=== PATIENT | female | born 1995 | race Caucasian/White ===

== ENCOUNTER 2016-08-24 08:49 | Emergency (ER) | payer OTHER ==
--- NOTE | 2016-08-24 12:49 | ED CLINICAL REPORT ---
Clinical Report - Physicians/Mid Levels [facility] [address] [place] [address] 08/24/2016 8:53 Patient: CULLEN ACHARYA Time Seen: 09:05; initial patient contact. Arrived- By private vehicle. Historian- patient. HISTORY OF PRESENT ILLNESS Chief Complaint: VAGINAL BLEEDING. This started today and still present. It was abrupt in onset and has been intermittent. The symptoms are described as mild. Modifying factors. Not worsened by anything. Not relieved by anything. The patient has had abnormal bleeding. No abdominal pain, pelvic pain, vaginal pain, low back pain or flank pain. No missed period(s), irregular periods, vaginal discharge, vaginal itching or genital lesions. No pain with urination, urinary frequency, urgency of urination or hematuria. Currently . Not receiving care. Similar symptoms previously: None. Recent medical care: Not recently seen/assessed. REVIEW OF SYSTEMS The patient has had nausea. No vomiting, diarrhea, fever or chills. All systems otherwise negative, except as recorded above. PAST HISTORY ( Cervical erosion. Abdominal Pain. Headache. Vaginitis. Vaginal Discharge. UTI - Urinary Tract Infection. OB History. Hyperemesis Gravidarum. Nephrolithiasis. Heart Murmur. . SURGERIES: Adenoidectomy. Cervix cauterized 02/26. .). SOCIAL HISTORY Never smoker. Occasional alcohol use. No drug use. ADDITIONAL NOTES The nursing notes have been reviewed with agreement regarding the chief complaint, PMH and patient medications and allergies. PHYSICAL EXAM Vital Signs: 08/24/2016 09:03 BP: 127/82. HR: 111. RR: 18. O2 saturation: 100%. Temp: 98.2 F. Pain level now: 0/10. Have been reviewed. Blood pressure normal. Tachycardic. Respiratory rate normal. Temperature normal. Oxygen saturation normal. Appearance: Alert. Oriented X3. No acute distress. HEENT: Normal external inspection. CVS: Heart sounds normal. Rate normal. Rhythm normal. Respiratory: No respiratory distress. Breath sounds normal. Abdomen: Soft and nontender. Bowel sounds normal. No organomegaly. No mass. : Speculum and bimanual exam performed. External inspection normal. Slight vaginal bleeding, consisting of dark blood, via the cervical os. No vaginal discharge. Cervical os closed. No tissue present. No cervicitis. Bimanual exam normal. Skin: Skin warm and dry. Normal skin color. No rash. Extremities: No lower extremity edema. Neuro: Oriented X 3. LABS, X-RAYS, AND EKG Pelvic Sonogram: Normal study. Uterus normal. A single gestation, viable intrauterine (6 week size) is present. Cardiac activity noted. Adnexa normal. No free fluid. Study type: bedside transvaginal and obstetrical evaluation. The study was interpreted by the radiologist and discussed with the radiologist. Interpretation time: 11:30. Laboratory Tests: UA-Culture if indicated: (FRANCO: 08/24/2016 09:30) ( [facility] [place] 08/24/2016 10:34) Final results Test Result Flag Units (Reference) URINE COLOR YELLOW URINE APPEARANCE CLEAR URINE GLUCOSE NEGATIVE (NEGATIVE) URINE BILIRUBIN NEGATIVE (NEGATIVE) URINE KETONE NEGATIVE (NEGATIVE) URINE SPECIFIC GRAVITY 1.020 (1.010-1.030) URINE PH 6.5 (5.0-8.0) URINE PROTEIN NEGATIVE (NEGATIVE) URINE UROBILINOGEN 0.2 EU/dL (0.2-1.0) URINE NITRITE NEGATIVE (NEGATIVE) URINE BLOOD 2+ (NEGATIVE) URINE LEUK ESTERASE NEGATIVE (NEGATIVE) URINE RBC 0-1 rbc/hpf (0-1) URINE WBC 0-1 wbc/hpf (0-1) URINE EPITHELIAL CELLS 1-3 EPI/hpf (0-5) URINE BACTERIA FEW (1+) (NONE SEEN) URINE COMMENT CULT NOT INDICATED URINE CULTURES ARE SET-UP BASED ON THE FOLLOWING CRITERIA:POSITIVE NITRITEPOSITIVE LEUKOCYTE ESTERASEGREATER THAN 10 WHITE BLOOD CELLSMODERATE (2+) OR GREATER BACTERIA Urine: (FRANCO: 08/24/2016 09:30) ( [facility] [place] 08/24/2016 10:16) Final results Test Result Flag Units (Reference) URINE POSITIVE CBC w Diff: (FRANCO: 08/24/2016 10:56) ( MsgRcvd 08/24/2016 11:09) IP Test Result Flag Units (Reference) WHITE BLOOD COUNT 10.0 K/uL (4.5-11.5) RED BLOOD COUNT 4.90 M/uL (4.00-5.20) HEMOGLOBIN 14.5 gm/dL (12.0-16.0) HEMATOCRIT 44.3 % (36.0-46.0) MEAN CELL VOLUME 91 fL (80-100) MEAN CORPUSCULAR HGB 30 pg (26-34) MEAN CORPUSCULAR HGB CONC 33 g/dL (31-37) RED CELL DISTRIBUTION WIDTH 14.6 % (11.6-14.8) NEUTROPHIL % 71.2 % (50-75) LYMPH % 23.6 L % (25-40) MONO % 4.6 % (3-14) EOSINOPHIL % 0.4 % (0-4) BASOPHIL % 0.2 % (0-2) Wet Prep: (FRANCO: 08/24/2016 10:00) ( MsgRcvd 08/24/2016 10:28) Final results SPECIMEN DESCRIPTION: ... Test Result Flag Units (Reference) WET MOUNT CLUE CELLS:: NONE EPITHELIAL CELLS: 1+ -- SOURCE?: CERVIX WHITE BLOOD CELLS: 2+ TRICHOMONAS:: NONE -- YEAST:: NONE . PROGRESS AND PROCEDURES Disposition: Discharged home in good condition. Condition: good. CLINICAL IMPRESSION First trimester intrauterine ; positive test in emergency department. Mild metrorrhagia. Ultrasound demonstrated an intrauterine . No dysfunctional uterine bleeding, pre-menopausal, menopausal or post-menopausal vaginal bleeding or vaginal bleeding with ovulation. No postcoital vaginal bleeding. INSTRUCTIONS Your Current Medications: CONTINUE TAKING THE FOLLOWING MEDICATIONS: Plexus drink for sleep*. Vitamins Oral. Follow-up: Follow up with your doctor in about two days. Call for an appointment. Screening today revealed the patient's blood pressure to be in the pre-hypertensive range. The patient should follow up with a primary care provider for blood pressure management. (Electronically signed by Laurent Michaels Dr. 08/24/2016 22:07)
--- NOTE | 2016-08-24 12:49 | ED NURSING NOTES ---
Clinical Report - Nurses [facility] [address] [place] [address] 08/24/2016 8:53 Patient: CULLEN ACHARYA TRIAGE Triage time 09:03. Acuity: LEVEL 3. Chief Complaint: VAGINAL BLEEDING. Alert. --09:10 Di Ramirez R.N. 09:03 08/24/16. BP: 127/82. HR: 111. RR: 18. O2 saturation: 100%. Temp: 98.2 F. Pain level now: 0. --09:10 Di Ramirez R.N. Weight: 75.7 kg stated. Height/Length: 63 inches Per Patient. BMI: 29.6. --09:08 Di Ramirez R.N. Medications Vitamins Oral. --09:07 Di Ramirez R.N. Plexus drink for sleep. --09:07 Di Ramirez R.N. Allergies Latex. --09:07 Di Ramirez R.N. History Arrived by private vehicle. Historian: patient. Unaccompanied. Primary physician (Nilton). This started just prior to arrival and today. PAST MEDICAL HX: Last normal menstrual period- Jul 08. Currently : Pt plans on seeing a maintenance data analyst. In 1st trimester. confirmed with home test. Has had no care. OB history: G 5; P 3; Ab 1. SOCIAL HX: Never smoker. Alcohol use. (rarely). No drug use. The patient was not exposed to MRSA. SELF HARM ASSESSMENT: A self harm assessment was performed. The patient answered "no" to the question "Do you have thoughts of harming or killing yourself?". FALL RISK ASSESSMENT: Fall risk assessment completed. No fall risk identified. NUTRITIONAL RISK ASSESSMENT: The nutritional risk assessment revealed no deficiencies. FUNCTIONAL ASSESSMENT: Functional assessment: no impairments noted. LEARNING NEEDS ASSESSMENT: The learning needs assessment revealed no barriers. SKIN INTEGRITY ASSESSMENT: Skin integrity risk assessment completed. No skin integrity risk identified. --09:10 Di Ramirez R.N. PROBLEMS: Cervical erosion. Abdominal Pain. Headache. Vaginitis. Vaginal Discharge. UTI - Urinary Tract Infection. OB History. Hyperemesis Gravidarum. Nephrolithiasis. Heart Murmur. . --09:04 Di Ramirez R.N. ADDITIONAL SURGERIES: Adenoidectomy. Cervix cauterized 02/26. . --09:05 Di Ramirez R.N. Interventions ID band on patient. To room. --09:10 Di Ramirez R.N. PHYSICAL ASSESSMENT 09:08/24/16. Patient gowned. GENERAL / NEURO / PSYCH: Alert. Oriented X 4. Appears anxious. --09:10 Di Ramirez R.N. NURSING PROGRESS NOTES 09:08/24/16. Patient identifiers checked. Call light placed in reach. Bed placed in lowest position. Brakes of bed on. Patient ready for evaluation- chart flagged. --09:10 Di Ramirez R.N. 09:32 08/24/16. Patient ID band checked for patient name and birthdate: patient confirmed. Clean catch urine collected with return of yellow-colored clear urine; sample sent to lab. Specimen labeled in the presence of the patient. --09:32 Di Ramirez R.N. 10:04 08/24/16. PELVIC EXAM: Pelvic exam performed by ED physician. Assisted by one nurse. Preparation: pelvic tray and culture medium; patient placed in lithotomy position. Procedure: speculum and bimanual exam. Specimens collected and sent to lab: GC, chlamydia and wet prep. Status post-procedure: no complications were noted. Total time of assist / procedure: (10 minutes). --10:04 Di Ramirez R.N. Patient ID band checked for patient name and birthdate: patient confirmed. Blood samples drawn from the left antecubital space with 23g butterfly by tech per protocol ; labeled in presence of the patient and sent to lab: rainbow set and red, green, purple and blue top. --10:59 Kori Gilbert, CARO Tech1 ( chaperoned while US tech. performing US.). --11:13 Kori Gilbert, ER Tech1. DISPOSITION / DISCHARGE Departure time: 1322. Condition at departure: improved. No learning barriers present. Discharge instructions provided and reviewed with the patient. Reviewed referral to family practice for followup. Verbalized understanding. Written instructions provided. The patient was discharged home. She left the Emergency Department ambulatory and via private vehicle. --13:26 Di Ramirez R.N. 13:22 08/24/16. BP: 119/87. HR: 108. RR: 18. O2 saturation: 100%. Pain level now: 0/10. --13:26 Di Ramirez R.N. Locked/Released at 08/24/2016 13:26 by Di Ramirez R.N.
--- NOTE | 2016-08-24 12:49 | ED ORDER SUMMARY ---
..... Patient: CULLEN ACHARYA OrderSheet [facility] VisitID: [id number] [place] [address] 21y, F Registration Date/Time: 08/24/2016 ORDER SHEET Weight: 75.7 kg (stated) Allergies: Latex GENERAL ORDERS: Wet Prep (Cervix) (...) Urgent (09:32 08/24/2016 Fabian Newton) (Ack 9:42 LNations ER Tech1) (12:12 NHouse ER Tech1) GC/Chlamydia (Cervix) (...) Urgent (09:33 08/24/2016 Fabian Newton) (Ack 9:42 LNations ER Tech1) (12:12 NHouse ER Tech1) UA-Culture if indicated Urgent (09:08/24/2016 Fabian Newton) (Ack 9:42 LNations ER Tech1) (11:52 NHouse ER Tech1) Urine Urgent (09:08/24/2016 Fabian Newton) (Ack 9:42 LNations ER Tech1) (11:52 NHouse ER Tech1) CBC w Diff Urgent (10:40 08/24/2016 Fabian Newton) (Ack 10:42 NHouse ER Tech1) (10:58 LNations ER Tech1) CMP Urgent (10:40 08/24/2016 Fabian Newton) (Ack 10:42 NHouse ER Tech1) (10:58 LNations ER Tech1) Serum Quantitative Urgent (10:40 08/24/2016 Fabian Newton) (Ack 10:42 NHouse ER Tech1) (10:58 LNations ER Tech1) Type & Rh Urgent (10:40 08/24/2016 Fabian Newton) (Ack 10:42 NHouse ER Tech1) (10:58 LNations ER Tech1) US OB 1st Trimester w Transvag (~ 8 weeks ago) Urgent (10:43 08/24/2016 Fabian Newton) (Ack 10:46 NHouse ER Tech1) (11:52 LNations ER Tech1) MEDICATION ORDERS: IV FLUIDS: ORDER SHEET NOTES: [Electronically signed by Di Ramirez R.N. (08/24/2016)] [Electronically signed by Laurent Michaels Dr. (22:07 08/24/2016)] [Electronically locked/signed by Di Ramirez R.N. (08/24/2016)]
--- NOTE | 2016-08-24 12:49 | ED NURSING NOTES ---
Clinical Report - Nurses [facility] [address] [place] [address] 08/24/2016 8:53 Patient: CULLEN ACHARYA TRIAGE Triage time 09:03. Acuity: LEVEL 3. Chief Complaint: VAGINAL BLEEDING. Alert. --09:10 Di Ramirez R.N. 09:03 08/24/16. BP: 127/82. HR: 111. RR: 18. O2 saturation: 100%. Temp: 98.2 F. Pain level now: 0. --09:10 Di Ramirez R.N. Weight: 75.7 kg stated. Height/Length: 63 inches Per Patient. BMI: 29.6. --09:08 Di Ramirez R.N. Medications Vitamins Oral. --09:07 Di Ramirez R.N. Plexus drink for sleep. --09:07 Di Ramirez R.N. Allergies Latex. --09:07 Di Ramirez R.N. History Arrived by private vehicle. Historian: patient. Unaccompanied. Primary physician (Nilton). This started just prior to arrival and today. PAST MEDICAL HX: Last normal menstrual period- Jul 08. Currently : Pt plans on seeing a salesperson florist supplies. In 1st trimester. confirmed with home test. Has had no care. OB history: G 5; P 3; Ab 1. SOCIAL HX: Never smoker. Alcohol use. (rarely). No drug use. The patient was not exposed to MRSA. SELF HARM ASSESSMENT: A self harm assessment was performed. The patient answered "no" to the question "Do you have thoughts of harming or killing yourself?". FALL RISK ASSESSMENT: Fall risk assessment completed. No fall risk identified. NUTRITIONAL RISK ASSESSMENT: The nutritional risk assessment revealed no deficiencies. FUNCTIONAL ASSESSMENT: Functional assessment: no impairments noted. LEARNING NEEDS ASSESSMENT: The learning needs assessment revealed no barriers. SKIN INTEGRITY ASSESSMENT: Skin integrity risk assessment completed. No skin integrity risk identified. --09:10 Di Ramirez R.N. PROBLEMS: Cervical erosion. Abdominal Pain. Headache. Vaginitis. Vaginal Discharge. UTI - Urinary Tract Infection. OB History. Hyperemesis Gravidarum. Nephrolithiasis. Heart Murmur. . --09:04 Di Ramirez R.N. ADDITIONAL SURGERIES: Adenoidectomy. Cervix cauterized 02/26. . --09:05 Di Ramirez R.N. Interventions ID band on patient. To room. --09:10 Di Ramirez R.N. PHYSICAL ASSESSMENT 09:08/24/16. Patient gowned. GENERAL / NEURO / PSYCH: Alert. Oriented X 4. Appears anxious. --09:10 Di Ramirez R.N. NURSING PROGRESS NOTES 09:08/24/16. Patient identifiers checked. Call light placed in reach. Bed placed in lowest position. Brakes of bed on. Patient ready for evaluation- chart flagged. --09:10 Di Ramirez R.N. 09:32 08/24/16. Patient ID band checked for patient name and birthdate: patient confirmed. Clean catch urine collected with return of yellow-colored clear urine; sample sent to lab. Specimen labeled in the presence of the patient. --09:32 Di Ramirez R.N. 10:04 08/24/16. PELVIC EXAM: Pelvic exam performed by ED physician. Assisted by one nurse. Preparation: pelvic tray and culture medium; patient placed in lithotomy position. Procedure: speculum and bimanual exam. Specimens collected and sent to lab: GC, chlamydia and wet prep. Status post-procedure: no complications were noted. Total time of assist / procedure: (10 minutes). --10:04 Di Ramirez R.N. Patient ID band checked for patient name and birthdate: patient confirmed. Blood samples drawn from the left antecubital space with 23g butterfly by tech per protocol ; labeled in presence of the patient and sent to lab: rainbow set and red, green, purple and blue top. --10:59 Kori Gilbert, CARO Tech1 ( chaperoned while US tech. performing US.). --11:13 Kori Gilbert, ER Tech1. DISPOSITION / DISCHARGE Departure time: 1322. Condition at departure: improved. No learning barriers present. Discharge instructions provided and reviewed with the patient. Reviewed referral to family practice for followup. Verbalized understanding. Written instructions provided. The patient was discharged home. She left the Emergency Department ambulatory and via private vehicle. --13:26 Di Ramirez R.N. 13:22 08/24/16. BP: 119/87. HR: 108. RR: 18. O2 saturation: 100%. Pain level now: 0/10. --13:26 Di Ramirez R.N. Locked/Released at 08/24/2016 13:26 by Di Ramirez R.N.
--- NOTE | 2016-08-24 12:49 | ED ORDER SUMMARY ---
..... Patient: CULLEN ACHARYA OrderSheet [facility] VisitID: [id number] [place] [address] 21y, F Registration Date/Time: 08/24/2016 ORDER SHEET Weight: 75.7 kg (stated) Allergies: Latex GENERAL ORDERS: Wet Prep (Cervix) (...) Urgent (09:32 08/24/2016 Fabian Newton) (Ack 9:42 LNations ER Tech1) (12:12 NHouse ER Tech1) GC/Chlamydia (Cervix) (...) Urgent (09:33 08/24/2016 Fabian Newton) (Ack 9:42 LNations ER Tech1) (12:12 NHouse ER Tech1) UA-Culture if indicated Urgent (09:08/24/2016 Fabian Newton) (Ack 9:42 LNations ER Tech1) (11:52 NHouse ER Tech1) Urine Urgent (09:08/24/2016 Fabian Newton) (Ack 9:42 LNations ER Tech1) (11:52 NHouse ER Tech1) CBC w Diff Urgent (10:40 08/24/2016 Fabian Newton) (Ack 10:42 NHouse ER Tech1) (10:58 LNations ER Tech1) CMP Urgent (10:40 08/24/2016 Fabian Newton) (Ack 10:42 NHouse ER Tech1) (10:58 LNations ER Tech1) Serum Quantitative Urgent (10:40 08/24/2016 Fabian Newton) (Ack 10:42 NHouse ER Tech1) (10:58 LNations ER Tech1) Type & Rh Urgent (10:40 08/24/2016 Fabian Newton) (Ack 10:42 NHouse ER Tech1) (10:58 LNations ER Tech1) US OB 1st Trimester w Transvag (~ 8 weeks ago) Urgent (10:43 08/24/2016 Fabian Newton) (Ack 10:46 NHouse ER Tech1) (11:52 LNations ER Tech1) MEDICATION ORDERS: IV FLUIDS: ORDER SHEET NOTES: [Electronically signed by Di Ramirez R.N. (08/24/2016)] [Electronically signed by Laurent Michaels Dr. (22:07 08/24/2016)] [Electronically locked/signed by Di Ramirez R.N. (08/24/2016)]
--- NOTE | 2016-08-24 22:07 | ED MED RECONCILIATION SUMMARY ---
Patient: CULLEN ACHARYA Medication Reconciliation Report [facility] VisitID: [id number] [address] [place] [place] [address] 21y, F Registration Date/Time: 08/24/2016 Weight: 75.7 kg Height/Length: 63 in. BMI: 29.6 ALLERGIES: Latex The patient's Home Medications are listed below: CONTINUE TAKING THE FOLLOWING MEDICATIONS: Plexus drink for sleep Vitamins Oral The source(s) of the original Home Medication information: Not obtained. The following Medications were given to the patient in the Emergency Department: None. The following Medications were prescribed to the patient: None.
--- NOTE | 2016-08-24 22:07 | ED MED RECONCILIATION SUMMARY ---
Patient: CULLEN ACHARAY Medication Reconciliation Report [facility] VisitID: [id number] [address] [place] [address] 21y, F Registration Date/Time: 08/24/2016 Weight: 75.7 kg Height/Length: 63 in. BMI: 29.6 ALLERGIES: Latex The patient's Home Medications are listed below: CONTINUE TAKING THE FOLLOWING MEDICATIONS: Plexus drink for sleep Vitamins Oral The source(s) of the original Home Medication information: Not obtained. The following Medications were given to the patient in the Emergency Department: None. The following Medications were prescribed to the patient: None.
--- NOTE | 2016-08-24 22:07 | ED MAR SUMMARY ---
..... Medication Administration Record [facility] [address] [place], [place] [id number] Patient: CULLEN ACHARYA Markus Visit ID: [id number] 21y, F Weight: 75.7 kg Height/Length: 63 in BMI: 29.6 ALLERGIES: Latex
--- NOTE | 2016-08-24 22:07 | ED MAR SUMMARY ---
..... Medication Administration Record [facility] [address] [place] [id number] Patient: CULLEN ACHARYA Markus Visit ID: [id number] 21y, F Weight: 75.7 kg Height/Length: 63 in BMI: 29.6 ALLERGIES: Latex
--- NOTE | 2016-08-24 22:07 | ED DISCHARGE INSTRUCTIONS ---
Patient: CULLEN ACHARYA General Instructions [facility] VisitID: [id number] [place] [address] 21y, F Registration Date/Time: 08/24/2016 First trimester intrauterine ; positive test in emergency department. Mild metrorrhagia. Ultrasound demonstrated an intrauterine . No dysfunctional uterine bleeding, pre-menopausal, menopausal or post-menopausal vaginal bleeding or vaginal bleeding with ovulation. No postcoital vaginal bleeding. INSTRUCTIONS Your Current Medications: CONTINUE TAKING THE FOLLOWING MEDICATIONS: Plexus drink for sleep*. Vitamins Oral. Follow-up: Follow up with your doctor in about two days. Call for an appointment. Screening today revealed the patient's blood pressure to be in the pre-hypertensive range. The patient should follow up with a primary care provider for blood pressure management. ADDITIONAL INFORMATION Irregular Vaginal Bleeding This is a condition in which bleeding occurs at unexpected times of the month. The bleeding may be heavier or table top tile setter than usual. Heavy bleeding may lead to anemia. If severe enough, anemia may cause you to look pale and feel weak or fatigued. You might have shortness of breath even with little exertion. The female hormones produced in your body every month may be out of balance. This imbalance leads to bleeding. Causes could include an ovarian cyst, emotional stress, pelvic infection. Failure to ovulate during your last cycle may also cause this problem. Home Care: If bleeding is heavy, rest and avoid heavy exertion. You may use acetaminophen (Tylenol) or ibuprofen (Motrin, Advil) to control pain, unless another pain medicine was prescribed. [NOTE: If you have chronic liver or kidney disease or ever had a stomach ulcer or GI bleeding, talk with your doctor before using these medicines.] Iron supplements may be prescribed for anemia. It takes about 4-6 weeks for the iron to correct the anemia. Take the medicine as directed. See your doctor for a repeat blood test after you finish the iron treatment. If hormones were prescribed to control your bleeding, take them exactly as directed. If you were prescribed a medicine called Provera (medroxyprogesterone), the bleeding should stop while you are taking it. Another period will start a few days after you finish the medicine. Follow Up with your doctor, or as advised, within the next 1-2 days if heavy bleeding continues. Otherwise, follow up within the next 1-2 weeks. Get Prompt Medical Attention if any of the following occur: Bleeding becomes heavy (soaking one pad an hour for three hours) Fever of 100.4F (38C) or higher, or as directed by your healthcare provider Increase in abdominal pain Weakness, dizziness or fainting Your exam today shows that you are . During , it is normal to develop tender swollen breasts, frequent urination and mild vaginal discharge. During the first three months, nausea is common. Guidelines For A Healthy : To ensure that your baby is born healthy there are certain things that you can do: When you feel tired, you should REST. This is especially true in the later months of . Your body needs more FLUIDS than you may be used to: You should drink 8-10 glasses of juice, milk or water. Eat well-balanced MEALS at regular intervals to supply your body with enough protein. You can expect a total weight gain of about 30 pounds during the . Do not try to diet or lose weight while you are . Because of the extra nutritional needs during , take one VITAMIN daily. Do not take any other MEDICINE during your (prescribed or [id number]-gusxean) unless your doctor specifically recommends this. Many drugs can have harmful effects on the growing baby. If NAUSEA or VOMITING become a problem, avoid greasy and fried foods. Eat several smaller meals throughout the day rather than three large meals. If you SMOKE, you must stop. The nicotine you breathe in goes right to the baby. Stay away from ALCOHOL, even in moderate amounts. Daily drinking will harm your baby and can cause permanent brain damage. RECREATIONAL DRUGS are harmful, especially cocaine, crack, and heroin. Marijuana should also be avoided. If you were using recreational drugs or prescribed medicine when you found out that you were , talk to your doctor about possible effects on the fetus. Follow Up: Call to arrange for care. This can be provided by your family doctor, an substation electrician ( specialist) or a primary care clinic. Get Prompt Medical Attention if any of the following occur: Vaginal bleeding Moderate or severe abdominal or back pain Excessive vomiting, unable to keep any fluids down for six hours Burning with urination Headache, dizziness or rapid weight gain You have been given the following additional information: Dysfunctional Uterine Bleeding , New Dx (Electronically signed by Laurent Michaels Dr. 08/24/2016 22:07)
--- NOTE | 2016-08-24 22:07 | ED DISCHARGE INSTRUCTIONS ---
Patient: CULLEN ACHARYA General Instructions [facility] VisitID: [id number] [place] [address] 21y, F Registration Date/Time: 08/24/2016 First trimester intrauterine ; positive test in emergency department. Mild metrorrhagia. Ultrasound demonstrated an intrauterine . No dysfunctional uterine bleeding, pre-menopausal, menopausal or post-menopausal vaginal bleeding or vaginal bleeding with ovulation. No postcoital vaginal bleeding. INSTRUCTIONS Your Current Medications: CONTINUE TAKING THE FOLLOWING MEDICATIONS: Plexus drink for sleep*. Vitamins Oral. Follow-up: Follow up with your doctor in about two days. Call for an appointment. Screening today revealed the patient's blood pressure to be in the pre-hypertensive range. The patient should follow up with a primary care provider for blood pressure management. ADDITIONAL INFORMATION Irregular Vaginal Bleeding This is a condition in which bleeding occurs at unexpected times of the month. The bleeding may be heavier or hydrology teacher than usual. Heavy bleeding may lead to anemia. If severe enough, anemia may cause you to look pale and feel weak or fatigued. You might have shortness of breath even with little exertion. The female hormones produced in your body every month may be out of balance. This imbalance leads to bleeding. Causes could include an ovarian cyst, emotional stress, pelvic infection. Failure to ovulate during your last cycle may also cause this problem. Home Care: If bleeding is heavy, rest and avoid heavy exertion. You may use acetaminophen (Tylenol) or ibuprofen (Motrin, Advil) to control pain, unless another pain medicine was prescribed. [NOTE: If you have chronic liver or kidney disease or ever had a stomach ulcer or GI bleeding, talk with your doctor before using these medicines.] Iron supplements may be prescribed for anemia. It takes about 4-6 weeks for the iron to correct the anemia. Take the medicine as directed. See your doctor for a repeat blood test after you finish the iron treatment. If hormones were prescribed to control your bleeding, take them exactly as directed. If you were prescribed a medicine called Provera (medroxyprogesterone), the bleeding should stop while you are taking it. Another period will start a few days after you finish the medicine. Follow Up with your doctor, or as advised, within the next 1-2 days if heavy bleeding continues. Otherwise, follow up within the next 1-2 weeks. Get Prompt Medical Attention if any of the following occur: Bleeding becomes heavy (soaking one pad an hour for three hours) Fever of 100.4F (38C) or higher, or as directed by your healthcare provider Increase in abdominal pain Weakness, dizziness or fainting Your exam today shows that you are . During , it is normal to develop tender swollen breasts, frequent urination and mild vaginal discharge. During the first three months, nausea is common. Guidelines For A Healthy : To ensure that your baby is born healthy there are certain things that you can do: When you feel tired, you should REST. This is especially true in the later months of . Your body needs more FLUIDS than you may be used to: You should drink 8-10 glasses of juice, milk or water. Eat well-balanced MEALS at regular intervals to supply your body with enough protein. You can expect a total weight gain of about 30 pounds during the . Do not try to diet or lose weight while you are . Because of the extra nutritional needs during , take one VITAMIN daily. Do not take any other MEDICINE during your (prescribed or [id number]-rpverqd) unless your doctor specifically recommends this. Many drugs can have harmful effects on the growing baby. If NAUSEA or VOMITING become a problem, avoid greasy and fried foods. Eat several smaller meals throughout the day rather than three large meals. If you SMOKE, you must stop. The nicotine you breathe in goes right to the baby. Stay away from ALCOHOL, even in moderate amounts. Daily drinking will harm your baby and can cause permanent brain damage. RECREATIONAL DRUGS are harmful, especially cocaine, crack, and heroin. Marijuana should also be avoided. If you were using recreational drugs or prescribed medicine when you found out that you were , talk to your doctor about possible effects on the fetus. Follow Up: Call to arrange for care. This can be provided by your family doctor, an sfdc developer ( specialist) or a primary care clinic. Get Prompt Medical Attention if any of the following occur: Vaginal bleeding Moderate or severe abdominal or back pain Excessive vomiting, unable to keep any fluids down for six hours Burning with urination Headache, dizziness or rapid weight gain You have been given the following additional information: Dysfunctional Uterine Bleeding , New Dx (Electronically signed by Laurent Michaels Dr. 08/24/2016 22:07)
--- NOTE | 2016-08-25 18:10 | DIAGNOSTIC IMAGING REPORT ---
PROCEDURE: US OB 1ST TRIMESTER W/TRANSVAG INDICATION: ABNORMAL BLEEDING, initial encounter TECHNIQUE: King scale, color, and spectral Doppler transabdominal and endovaginal sonographic images of the first trimester gravid uterus were obtained. COMPARISON: None. FINDINGS: TRANSABDOMINAL SCANS: There is an intrauterine gestational sac. TRANSVAGINAL SCANS: [place]-rump length 5 mm, 6 weeks 2 days. JOAQUINA 04/17/2017. Heart rate 119 bpm. IMPRESSION: 1. Single live intrauterine 6 weeks 2 days 2. JOAQUINA 04/17/2017
== END 2016-08-24 13:23 | disposition home or self-care (01) ==
LOC: ED SRH 08:49
DX: O20.8 Other hemorrhage in early pregnancy (principal); Z3A.01 Less than 8 weeks gestation of pregnancy; Z91.040 Latex allergy status
CPT/HCPCS: 90001; 90004; 90100; 90155; 90195; 90197; 91227; 91228; 93070; 95059

== ENCOUNTER 2016-08-27 18:47 | Emergency (ER) | payer OTHER ==
--- NOTE | 2016-08-27 23:13 | DIAGNOSTIC IMAGING REPORT ---
PROCEDURE: US OB 1ST TRIMESTER W/TRANSVAG INDICATION: ABNORMAL BLEEDING TECHNIQUE: King scale, color, and spectral Doppler transabdominal and endovaginal sonographic images of the first trimester gravid uterus were obtained. COMPARISON: OB ultrasound 08/24/2016 FINDINGS: TRANSABDOMINAL SCANS: Abnormal shaped gestational sac in the lower uterine segment . TRANSVAGINAL SCANS: Abnormal shaped pole with crown-rump length 5.1 mm, 6 weeks 2 days, unchanged. No evidence of cardiac activity. Normal adnexa. IMPRESSION: 1. Intrauterine with no cardiac rhythm or interval growth, most consistent with demise. 2. Results discussed with Dr. Avila
--- NOTE | 2016-08-28 00:25 | ED NURSING NOTES ---
Clinical Report - Nurses [facility] [address] [place] [address] 08/27/2016 18:47 Patient: CULLEN ACHARYA TRIAGE Triage time 19:Aug 27 2016. Acuity: LEVEL 3. Chief Complaint: VAGINAL BLEEDING. 19:00 08/27/16. --19:09 Juliet Gold R.N. 19:00 08/27/16. BP: 125/79. HR: 106. RR: 22. O2 saturation: 97%. Temp: 97.9 F. Pain level now: 0/10. --19:09 Juliet Gold R.N. Weight: 75.7 kg stated. Height/Length: 63 inches Per Patient. BMI: 29.6. --19:00 Juliet Gold R.N. Medications Vitamins Oral. --19:03 Juliet Gold R.N. Medication/allergy information source: the patient. --19:09 Juliet Gold R.N. History Arrived by private vehicle. Historian: patient. Accompanied by family. This started just prior to arrival. ( felt gush of blood tonight, filled a pad. Pt has had 2 prior ultrasounds this (here at [facility]) labs done as well. Last US had normal heart rate and everything was ok). No vomiting, fever or swelling. Treatment DIRECTOR OF BROADCAST: None. PAST MEDICAL HX: Currently : EDC: LNMP:. In 1st trimester. confirmed with serum test and sonogram. Has had care by private doctor. Recent sonogram showed viable intrauterine . OB history: G 5; P 3; Ab 1. Has not received seasonal influenza immunization. SOCIAL HX: Former smoker. No alcohol use or drug use. No infectious disease exposure. ABUSE ASSESSMENT: No report of abuse. SELF HARM ASSESSMENT: A self harm assessment was performed. The patient answered "no" to the question "Have you recently felt down, depressed, or hopeless?", "Have you noticed less interest or pleasure in doing things?", "Do you have thoughts of harming or killing yourself?", "Are you here because you tried to hurt yourself?", "Have you ever tried to hurt yourself before today?", "Have you recently had thoughts about harming or killing others?" and "Do you have any dangerous items in your possession?". FALL RISK ASSESSMENT: Fall risk assessment completed. No fall risk identified. NUTRITIONAL RISK ASSESSMENT: The nutritional risk assessment revealed no deficiencies. FUNCTIONAL ASSESSMENT: Functional assessment: no impairments noted. LEARNING NEEDS ASSESSMENT: The learning needs assessment revealed no barriers. SKIN INTEGRITY ASSESSMENT: Skin integrity risk assessment completed. No skin integrity risk identified. --19:09 Juliet Gold R.N. PROBLEMS: Cervical erosion. Hyperemesis Gravidarum. Nephrolithiasis. --19:03 Juliet Gold R.N. ADDITIONAL SURGERIES: Adenoidectomy. Cervix cauterized 02/26. . --19:03 Juliet Gold R.N. Interventions ID band on patient. --19:09 Juliet Gold R.N. PHYSICAL ASSESSMENT 19:00 08/27/16. Ambulatory to room. ( Had Quant Hcg on 08/24 result 4107 and yesterday at MD office she reports result as 5100. Both days had ultrasounds with viable IUP.). GENERAL / NEURO / PSYCH: Alert. Oriented X 4. Appears anxious. HEENT: Mucous membranes are pink. RESPIRATORY: Respirations not labored. Breath sounds within normal limits. CVS: Capillary refill less than 2 seconds. GI / : Abdomen soft and nontender. Moderate vaginal bleeding present, consisting of bright red blood with clots .1 pad per hour. EXTREMITIES: No lower extremity edema. SKIN: Skin is warm and dry. --22:56 Juliet Gold R.N. NURSING PROGRESS NOTES 19:00 08/27/16. The initial plan of care for this patient includes an assessment with efforts to address impairment of the genitourinary system. This plan of care was discussed with the patient. Patient gowned. Reassurance given. Patient identifiers checked. Call light placed in reach. Side rails up x 1. Bed placed in lowest position. Brakes of bed on. Patient ready for evaluation. --19:46 Juliet Gold R.N. 19:25 08/27/16. Patient ID band checked for patient name and birthdate: patient confirmed. Blood samples drawn from the right forearm with 22g by nurse ; labeled in presence of the patient: rainbow set. --19:47 Juliet Gold R.N. 19:40 08/27/16. Patient ID band checked for patient name and birthdate: patient confirmed. Patient verbalized understanding. Clean catch urine collected with return of yellow-colored urine; sample sent to lab for urinalysis. Specimen labeled in the presence of the patient. --19:49 Juliet Gold R.N. 20:20 08/27/16. PELVIC EXAM: Pelvic exam performed by ED physician. Assisted by one nurse. Preparation: pelvic tray; patient placed in lithotomy position. Procedure: speculum exam. Moderate amount of vaginal bleeding noted with possible tissue. Specimens collected and sent to lab: GC, chlamydia and wet prep. Status post-procedure: she was stable. Total time of assist / procedure: 15 minutes. --20:24 Juliet Gold R.N. 20:24 08/27/16. BP: 130/76. HR: 88. RR: 16. O2 saturation: 99%. Pain level now 0/10. --20:24 Juliet Gold R.N. 21:00 08/27/16. ( Dr Colbert at bedside explaining lab and pelvic exam findings. Explained difference between threatened and actual . Pt informed that Ultrasound should be here at 21:45.). --21:37 Juliet Gold R.N. 21:25 08/27/2016 Acetaminophen (APAP) PO Tablets 1000 mg given. Allergies verified and confirmed 5 rights. --21:35 Juliet Gold R.N. 22:15 08/27/16. Rehabilitation Services Aide provided for the pelvic exam by the physician. Bedside pelvic sonogram performed by maintenance shop technician (RN hand inspector for TV ultrasound). --22:21 Juliet Gold R.N. 22:58 08/27/16. The patient is calm and resting quietly. Overall patient status is the same- she states feels the same. SKIN: Skin is warm and dry. Patient waiting for radiology results and disposition. --22:58 Juliet Gold R.N. 23:30 08/27/16. ( Patient and family reqesting to see MD again.). --23:47 Juliet Gold R.N. DISPOSITION / DISCHARGE 00:43 08/28/16. Condition at departure: unchanged and stable. The goals identified in the patient's plan of care were met. No learning barriers present. Discharge instructions provided and reviewed with the patient. Reviewed medication(s) side effects, precautions, dosing and course information. Prescription(s) given to the patient. Patient verbalized understanding. Written instructions provided in Lebanese. The patient was discharged home and accompanied by spouse. She left the Emergency Department ambulatory and via private vehicle. Patient driving. FALL RISK ASSESSMENT: Fall risk assessment completed. No fall risk identified. --00:43 Juliet Gold R.N. 00:43 08/28/16. BP: 124/70. HR: 88. RR: 16. O2 saturation: 100%. Pain level now 5/10. --00:43 Juliet Gold R.N. 00:43 08/28/16. Departure time: 00:43 Aug 28 2016. Reviewed referral to a chemist intern for followup. --00:43 Juliet Gold R.N. Locked/Released at 08/28/2016 0:44 by Juliet Gold R.N.
--- NOTE | 2016-08-28 00:25 | ED CLINICAL REPORT ---
Clinical Report - Physicians/Mid Levels [facility] [address] [place] [address] 08/27/2016 18:47 Patient: CULLEN ACHARYA Time Seen: 19:01. Arrived- By private vehicle. Historian- patient. HISTORY OF PRESENT ILLNESS Chief Complaint: VAGINAL BLEEDING. This started about 4 days ago and still present and now worse. It has been intermittent and waxing/waning. The symptoms are described as moderate. The patient has had abnormal bleeding described as like normal period. The bleeding has required use of about 2 pads per day. Last normal menstrual period- 06 Jul 2016. 5. Para 3. Abortions 1. Currently . In 1st trimester. confirmed with serum test. Has had care by private doctor. Recent sonogram showed intrauterine . REVIEW OF SYSTEMS No chills, fever, sweats, calf pain or chest pain. No cough, difficulty breathing, pedal edema, palpitations or abdominal pain. No black stools, bloody stools, vomiting or urinary problems. The patient has had diarrhea and nausea. She had a fall in her bath tub several days ago. This was after the spotting had started. All systems otherwise negative, except as recorded above. PAST HISTORY Endometriosis ("when I was 12 but they didn't want to do a procedure on a 12 year old). ( [facility] - [facility] - Dr. Saenz). Problems: Intrauterine . Vaginal Bleeding. Cervical erosion. Abdominal Pain. Headache. Vaginitis. Vaginal Discharge. UTI - Urinary Tract Infection. Hyperemesis Gravidarum. Nephrolithiasis. Heart Murmur. Immunizations. . Additional Surgeries: Adenoidectomy. Cervix cauterized 02/26. . Medications: Vitamins Oral. Allergies: Latex. SOCIAL HISTORY Never smoker. No alcohol use or drug use. FAMILY HISTORY Family history of ovarian cancer in first-degree relative (mother). Cancer in first-degree relative (mother). ADDITIONAL NOTES The nursing notes have been reviewed. PHYSICAL EXAM Vital Signs: 08/27/2016 19:00 BP: 125/79. HR: 106. RR: 22. O2 saturation: 97%. Temp: 97.9 F. Pain level now: 0/10. Have been reviewed. Appearance: Alert. No acute distress. ENT: Pharynx normal. Neck: Neck supple. CVS: Heart sounds normal. Respiratory: No respiratory distress. Breath sounds normal. Abdomen: Soft and nontender. Bowel sounds normal. No organomegaly. No mass. Back: Abnormal external inspection. Skin: Skin warm and dry. Normal skin color. Normal skin turgor. Extremities: Extremities nontender. No calf tenderness. No lower extremity edema. LABS, X-RAYS, AND EKG Laboratory Tests: UA-Culture if indicated: (FRANCO: 08/27/2016 19:40) ( [facility] 08/27/2016 20:11) Final results Test Result Flag Units (Reference) URINE COLOR YELLOW URINE APPEARANCE CLEAR URINE GLUCOSE NEGATIVE (NEGATIVE) URINE BILIRUBIN NEGATIVE (NEGATIVE) URINE KETONE 1+ (NEGATIVE) URINE SPECIFIC GRAVITY >= 1.030 (1.010-1.030) URINE PH 6.0 (5.0-8.0) URINE PROTEIN NEGATIVE (NEGATIVE) URINE UROBILINOGEN 0.2 EU/dL (0.2-1.0) URINE NITRITE NEGATIVE (NEGATIVE) URINE BLOOD 3+ (NEGATIVE) URINE LEUK ESTERASE NEGATIVE (NEGATIVE) URINE RBC 5-10 rbc/hpf (0-1) URINE WBC 3-5 wbc/hpf (0-1) URINE EPITHELIAL CELLS 3-5 EPI/hpf (0-5) URINE BACTERIA TRACE (<1+) (NONE SEEN) URINE COMMENT CULT NOT INDICATED MUCUS 1+URINE CULTURES ARE SET-UP BASED ON THE FOLLOWING CRITERIA:POSITIVE NITRITEPOSITIVE LEUKOCYTE ESTERASEGREATER THAN 10 WHITE BLOOD CELLSMODERATE (2+) OR GREATER BACTERIA CBC w Diff: (FRANCO: 08/27/2016 19:22) ( [facility] 08/27/2016 19:35) Final results Test Result Flag Units (Reference) WHITE BLOOD COUNT 9.0 K/uL (4.5-11.5) RED BLOOD COUNT 4.65 M/uL (4.00-5.20) HEMOGLOBIN 13.9 gm/dL (12.0-16.0) HEMATOCRIT 42.6 % (36.0-46.0) MEAN CELL VOLUME 92 fL (80-100) MEAN CORPUSCULAR HGB 30 pg (26-34) MEAN CORPUSCULAR HGB CONC 33 g/dL (31-37) RED CELL DISTRIBUTION WIDTH 14.7 % (11.6-14.8) PLATELET COUNT 273 K/uL (150-400) NEUTROPHIL % 65.5 % (50-75) LYMPH % 28.3 % (25-40) MONO % 5.6 % (3-14) EOSINOPHIL % 0.5 % (0-4) BASOPHIL % 0.1 % (0-2) PT with INR: (FRANCO: 08/27/2016 19:22) ( [facility] 08/27/2016 19:44) Final results Test Result Flag Units (Reference) INR 1.1 (0.8-1.2) Low Intensity Therapy: INR 1.5-2.0 PT range 18.5-23.1Mod.Intensity Therapy: INR 2.0-3.0 PT range 23.1-31.5High Intensity Therapy: INR 2.5-3.5 PT range 27.4-35.5High Intensity Therapy 2: INR 3.0-4.0 PT range 31.5-39.3 APTT 31 SECONDS (24-34) CMP: (FRANCO: 08/27/2016 19:22) ( [facility] 08/27/[place] 20:08) Final results Test Result Flag Units (Reference) GLUCOSE 93 mg/dL (70-110) BUN 12 mg/dL (7-18) CREATININE 0.7 mg/dL (0.6-1.3) Estimated GFR >60 mL/min Estimated GFR- >60 mL/min Note: Persistent reduction over 3 months in eGFR<60 mL/min/1.73 m2 defines CKD. Patients with eGFR values>=60 mL/min/1.73 m2 may also have CKD if evidence ofpersistent proteinuria. Additional information may be foundat [email or web address].org. SODIUM 142 mmol/L (136-145) POTASSIUM 4.0 mmol/L (3.5-5.1) CHLORIDE 105 mmol/L (98-107) CARBON DIOXIDE 27 mmol/L (21-32) CALCIUM 9.0 mg/dL (8.5-10.1) TOTAL PROTEIN 8.3 H g/dL (6.4-8.2) ALBUMIN 4.2 g/dL (3.3-5.0) BILIRUBIN, TOTAL 0.5 mg/dL (0.0-1.0) ALKALINE PHOSPHATASE 84 U/L (46-116) AST (SGOT) 15 U/L (15-37) ALT (SGPT) 38 U/L (12-78) LIPASE 173 U/L (73-393) AMYLASE 51 U/L (25-115) BETA HCG, QUANTITATIVE 4080 mIU/mL REFERENCE RANGE:Adult Males: <2 mIU/mLNon- Females: <6 mIU/mL Females:Approximate Approximate hCGGestational Age Range (mIU/mL) 0-1 week 0-501-2 weeks 40-3002-3 weeks 100-85796-6 weeks 500-77590-6 months 5,000-200,0002-3 months 10,000-100,0002nd trimester 3,000-50,0003rd trimester 1,000-50,000 Wet Prep: (FRANCO: 08/27/2016 20:10) ( [facility] 08/27/2016 20:25) Final results SPECIMEN DESCRIPTION: CERVIX Test Result Flag Units (Reference) WET MOUNT CLUE CELLS:: NONE EPITHELIAL CELLS: FEW -- SOURCE?: CERVIX WHITE BLOOD CELLS: MODERATE TRICHOMONAS:: NONE -- YEAST:: NONE Type & Rh: (FRANCO: 08/27/2016 19:22) ( [facility] 08/27/2016 19:47) Final results Test Result Flag Units (Reference) PATIENT BLOOD TYPE AB Positive . PROGRESS AND PROCEDURES Course of Care: 21:25 08/27/16. the case was discussed with Dr. Avila at change of shift. We reviewed the patient's history and physical examination findings and results of her studies thus far. I also reviewed with him the results of my discussion with the on-call [employer] provider Dr. Serna. Dr. Avila will follow on the results of the patient's pending ultrasound and will arrange an appropriate disposition for her. - plan of care reviewed. Patient is a follow-up with ultrasound results and laboratory studies. I spoken with ultrasound in regards to patient's workup. Unable to detect heart tones at this time. Spoke with patient's [employer] who recommended one of 3 options. Expectant management, medical assistance in passing products of conception, or dilation and curettage. Had long discussion with patient and mother in regards to the treatment plan. The patient had a difficult time in deciding which route to undertake. The patient has normal vital signs here in the emergency department and is non-tachycardic. Hemoglobin and hematocrit are otherwise unremarkable. Patient was deciding on dilation and curettage versus medical assistance in passing products of conception. Had long discussion in regards to all 3 of the options mentioned prior. The patient states that she has a birthday libertarian for her children in the morning. 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 Patient stated that she has missed a lot of class and will be having a difficult time in passing if she misses further classes. I discussion patient in regards to her health being the most important aspect of her care at this point in time and school would be coming second. Consulted our [employer] in regards to patient's dilation and curettage as patient states that she would like to have it done if she is able to get up at 3:00 the next day. Had consulted our [employer] as a request from the patient to explore this possibility. Spoke with [employer] in regards to procedure. At this time because of the risks of the procedure, would only do the procedure if the patient's breathing had become significant or if there was other clinical signs of worsening condition such as infection or hemodynamic instability. Patient will be monitored in the hospital and would likely not obtaining her dilation and curettage until after 3 PM and would dismiss her child's birthday libertarian. Patient was unhappy with this option and stated that she would "wants to get it over with." Patient states that she would like to have the medication to help pass the products of conception. Had long discussion with patient in regards to her laboratory studies. At this point in time the diagnosis is likely completed . No heart tones noted on ultrasound. The patient also has a drop in her beta hCG which is abnormal given her last beta hCG. Patient also had a prior beta hCG that was drawn in between today's visit and our emergency ddepartment visit which also indicates the beta hCG is dropping. In light of this, patient was informed the high likelihood of miscarriage. again spoke with patient in regards to expected management. Patient again reiterated that she would like to "get it over with." I was called back to the room multiple times and had long discussions with the patient in regards to her treatment plan, diagnosis, and expectant course. Also a long discussion with patient in regards to her workup here in the emergency department in the meaning of her laboratory studies. Also spoken with the mother necrosis. Patient is significantly emotionally affected by the incident. I attempted to console mother myself and with assistance of staff here in the emergency department. Patient is otherwise stable for outpatient management. Patient informed to follow up with her [employer] in 1-2 days. I discussion patient in regards to significant vaginal bleeding and when to return to the emergenc Prior to patient's departure from the emergency department, patient reported having passed a "large clot. "I've examined the clot and found the clots to be several small dime-sized clots. No significant large clot noted. Estimated blood volume approximately 3 mL Or less. Patient resting in bed and although emotionally upset, no signs ofanemiaor toxic appearance. Do not the patient is to be admitted to the hospital at that time or require further emergency department evaluation. Patient was offered as much time that she needed to stay in the emergency department in regards to the emotional burdenupon her. Discussed with patient and family as well as significant other workup, diagnosis, home care, follow-up, and return precautions. All questions answered. The patient expressed understanding of these instructions and was agreeable to them. Patient is stable. Critical care performed (95 minutes). Time is exclusive of separately billable procedures. Time includes: direct patient care, patient reassessment, coordination of patient care, interpretation of data (laboratory data), review of patient's medical records, medical consultation, family consultation regarding treatment decisions and documentation of patient care. Patient/family counseled. Old medical records reviewed. Disposition: Discharged. Condition: good. CLINICAL IMPRESSION Moderate vaginal bleeding. 08/27/2016 20:24 BP: 130/76. HR: 88. RR: 16. O2 saturation: 99%. Blood pressure normal. Oxygen saturation normal. Incomplete spontaneous . INSTRUCTIONS Off school for 3 days. (Please take the misoprostol as directed). Warnings: GENERAL WARNINGS: Return or contact your physician immediately if your condition worsens or changes unexpectedly, if not improving as expected, or if other problems arise. Specifically return if pain, vomiting, bleeding, breathing difficulty or fever. weakness, dizziness, or other concerns. Your Current Medications: CONTINUE TAKING THE FOLLOWING MEDICATIONS: Vitamins Oral. Prescription Medications: Percocet 5 mg/325 mg: take 1 tablet orally every 6 hours. Dispense twenty (20). No refill. Substitution is permissible. Follow-up: Return to the emergency department as needed. Follow up with your doctor in three days. Reason for referral: recheck today's concerns. Summary of care provided to patient via paper. Follow up with doctor your frit coater in two days. Summary of care provided to patient and family via paper. Screening today revealed the patient's blood pressure to be in the normal range. The patient should follow up with a primary care provider for blood pressure management. Understanding of the discharge instructions verbalized by patient. (Electronically signed by Grady Avila Dr. 08/30/2016 10:41)
--- NOTE | 2016-08-28 00:25 | ED NURSING NOTES ---
Clinical Report - Nurses [facility] [address] [place] [address] 08/27/2016 18:47 Patient: CULLEN ACHARYA TRIAGE Triage time 19:Aug 27 2016. Acuity: LEVEL 3. Chief Complaint: VAGINAL BLEEDING. 19:00 08/27/16. --19:09 Juliet Gold R.N. 19:00 08/27/16. BP: 125/79. HR: 106. RR: 22. O2 saturation: 97%. Temp: 97.9 F. Pain level now: 0/10. --19:09 Juliet Gold R.N. Weight: 75.7 kg stated. Height/Length: 63 inches Per Patient. BMI: 29.6. --19:00 Juliet Gold R.N. Medications Vitamins Oral. --19:03 Juliet Gold R.N. Medication/allergy information source: the patient. --19:09 Juliet Gold R.N. History Arrived by private vehicle. Historian: patient. Accompanied by family. This started just prior to arrival. ( felt gush of blood tonight, filled a pad. Pt has had 2 prior ultrasounds this (here at [facility]) labs done as well. Last US had normal heart rate and everything was ok). No vomiting, fever or swelling. 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 PAST MEDICAL HX: Currently : EDC: LNMP:. In 1st trimester. confirmed with serum test and sonogram. Has had care by private doctor. Recent sonogram showed viable intrauterine . OB history: G 5; P 3; Ab 1. Has not received seasonal influenza immunization. SOCIAL HX: Former smoker. No alcohol use or drug use. No infectious disease exposure. ABUSE ASSESSMENT: No report of abuse. SELF HARM ASSESSMENT: A self harm assessment was performed. The patient answered "no" to the question "Have you recently felt down, depressed, or hopeless?", "Have you noticed less interest or pleasure in doing things?", "Do you have thoughts of harming or killing yourself?", "Are you here because you tried to hurt yourself?", "Have you ever tried to hurt yourself before today?", "Have you recently had thoughts about harming or killing others?" and "Do you have any dangerous items in your possession?". FALL RISK ASSESSMENT: Fall risk assessment completed. No fall risk identified. NUTRITIONAL RISK ASSESSMENT: The nutritional risk assessment revealed no deficiencies. FUNCTIONAL ASSESSMENT: Functional assessment: no impairments noted. LEARNING NEEDS ASSESSMENT: The learning needs assessment revealed no barriers. SKIN INTEGRITY ASSESSMENT: Skin integrity risk assessment completed. No skin integrity risk identified. --19:09 Juliet Gold R.N. PROBLEMS: Cervical erosion. Hyperemesis Gravidarum. Nephrolithiasis. --19:03 Juliet Gold R.N. ADDITIONAL SURGERIES: Adenoidectomy. Cervix cauterized 02/26. . --19:03 Juliet Gold R.N. Interventions ID band on patient. --19:09 Juliet Gold R.N. PHYSICAL ASSESSMENT 19:00 08/27/16. Ambulatory to room. ( Had Quant Hcg on 08/24 result 4107 and yesterday at MD office she reports result as 5100. Both days had ultrasounds with viable IUP.). GENERAL / NEURO / PSYCH: Alert. Oriented X 4. Appears anxious. HEENT: Mucous membranes are pink. RESPIRATORY: Respirations not labored. Breath sounds within normal limits. CVS: Capillary refill less than 2 seconds. GI / : Abdomen soft and nontender. Moderate vaginal bleeding present, consisting of bright red blood with clots .1 pad per hour. EXTREMITIES: No lower extremity edema. SKIN: Skin is warm and dry. --22:56 Juliet Gold R.N. NURSING PROGRESS NOTES 19:00 08/27/16. The initial plan of care for this patient includes an assessment with efforts to address impairment of the genitourinary system. This plan of care was discussed with the patient. Patient gowned. Reassurance given. Patient identifiers checked. Call light placed in reach. Side rails up x 1. Bed placed in lowest position. Brakes of bed on. Patient ready for evaluation. --19:46 Juliet Gold R.N. 19:25 08/27/16. Patient ID band checked for patient name and birthdate: patient confirmed. Blood samples drawn from the right forearm with 22g by nurse ; labeled in presence of the patient: rainbow set. --19:47 Juliet Gold R.N. 19:40 08/27/16. Patient ID band checked for patient name and birthdate: patient confirmed. Patient verbalized understanding. Clean catch urine collected with return of yellow-colored urine; sample sent to lab for urinalysis. Specimen labeled in the presence of the patient. --19:49 Juliet Gold R.N. 20:20 08/27/16. PELVIC EXAM: Pelvic exam performed by ED physician. Assisted by one nurse. Preparation: pelvic tray; patient placed in lithotomy position. Procedure: speculum exam. Moderate amount of vaginal bleeding noted with possible tissue. Specimens collected and sent to lab: GC, chlamydia and wet prep. Status post-procedure: she was stable. Total time of assist / procedure: 15 minutes. --20:24 Juliet Gold R.N. 20:24 08/27/16. BP: 130/76. HR: 88. RR: 16. O2 saturation: 99%. Pain level now 0/10. --20:24 Juliet Gold R.N. 21:00 08/27/16. ( Dr Colbert at bedside explaining lab and pelvic exam findings. Explained difference between threatened and actual . Pt informed that Ultrasound should be here at 21:45.). --21:37 Juliet Gold R.N. 21:25 08/27/2016 Acetaminophen (APAP) PO Tablets 1000 mg given. Allergies verified and confirmed 5 rights. --21:35 Juliet Gold R.N. 22:15 08/27/16. Spiral Winder provided for the pelvic exam by the physician. Bedside pelvic sonogram performed by camera technician (RN multi township assessor for TV ultrasound). --22:21 Juliet Gold R.N. 22:58 08/27/16. The patient is calm and resting quietly. Overall patient status is the same- she states feels the same. SKIN: Skin is warm and dry. Patient waiting for radiology results and disposition. --22:58 Juliet Gold R.N. 23:30 08/27/16. ( Patient and family reqesting to see MD again.). --23:47 Juliet Gold R.N. DISPOSITION / DISCHARGE 00:43 08/28/16. Condition at departure: unchanged and stable. The goals identified in the patient's plan of care were met. No learning barriers present. Discharge instructions provided and reviewed with the patient. Reviewed medication(s) side effects, precautions, dosing and course information. Prescription(s) given to the patient. Patient verbalized understanding. Written instructions provided in Bur[place]. The patient was discharged home and accompanied by spouse. She left the Emergency Department ambulatory and via private vehicle. Patient driving. FALL RISK ASSESSMENT: Fall risk assessment completed. No fall risk identified. --00:43 Juliet Gold R.N. 00:43 08/28/16. BP: 124/70. HR: 88. RR: 16. O2 saturation: 100%. Pain level now 5/10. --00:43 Juliet Gold R.N. 00:43 08/28/16. Departure time: 00:43 Aug 28 2016. Reviewed referral to a guest attendant for followup. --00:43 Juliet Gold R.N. Locked/Released at 08/28/2016 0:44 by Juliet Gold R.N.
--- NOTE | 2016-08-28 00:25 | ED CLINICAL REPORT ---
Clinical Report - Physicians/Mid Levels [facility] [address] [place] [address] 08/27/2016 18:47 Patient: CULLEN ACHARYA Time Seen: 19:01. Arrived- By private vehicle. Historian- patient. HISTORY OF PRESENT ILLNESS Chief Complaint: VAGINAL BLEEDING. This started about 4 days ago and still present and now worse. It has been intermittent and waxing/waning. The symptoms are described as moderate. The patient has had abnormal bleeding described as like normal period. The bleeding has required use of about 2 pads per day. Last normal menstrual period- 06 Jul 2016. 5. Para 3. Abortions 1. Currently . In 1st trimester. confirmed with serum test. Has had care by private doctor. Recent sonogram showed intrauterine . REVIEW OF SYSTEMS No chills, fever, sweats, calf pain or chest pain. No cough, difficulty breathing, pedal edema, palpitations or abdominal pain. No black stools, bloody stools, vomiting or urinary problems. The patient has had diarrhea and nausea. She had a fall in her bath tub several days ago. This was after the spotting had started. All systems otherwise negative, except as recorded above. PAST HISTORY Endometriosis ("when I was 12 but they didn't want to do a procedure on a 12 year old). ( Commercial Representative - [facility] - Dr. Saenz). Problems: Intrauterine . Vaginal Bleeding. Cervical erosion. Abdominal Pain. Headache. Vaginitis. Vaginal Discharge. UTI - Urinary Tract Infection. Hyperemesis Gravidarum. Nephrolithiasis. Heart Murmur. Immunizations. . Additional Surgeries: Adenoidectomy. Cervix cauterized 02/26. . Medications: Vitamins Oral. Allergies: Latex. SOCIAL HISTORY Never smoker. No alcohol use or drug use. FAMILY HISTORY Family history of ovarian cancer in first-degree relative (mother). Cancer in first-degree relative (mother). ADDITIONAL NOTES The nursing notes have been reviewed. PHYSICAL EXAM Vital Signs: 08/27/2016 19:00 BP: 125/79. HR: 106. RR: 22. O2 saturation: 97%. Temp: 97.9 F. Pain level now: 0/10. Have been reviewed. Appearance: Alert. No acute distress. ENT: Pharynx normal. Neck: Neck supple. CVS: Heart sounds normal. Respiratory: No respiratory distress. Breath sounds normal. Abdomen: Soft and nontender. Bowel sounds normal. No organomegaly. No mass. Back: Abnormal external inspection. Skin: Skin warm and dry. Normal skin color. Normal skin turgor. Extremities: Extremities nontender. No calf tenderness. No lower extremity edema. LABS, X-RAYS, AND EKG Laboratory Tests: UA-Culture if indicated: (FRANCO: 08/27/2016 19:40) ( [facility] 08/27/2016 20:11) Final results Test Result Flag Units (Reference) URINE COLOR YELLOW URINE APPEARANCE CLEAR URINE GLUCOSE NEGATIVE (NEGATIVE) URINE BILIRUBIN NEGATIVE (NEGATIVE) URINE KETONE 1+ (NEGATIVE) URINE SPECIFIC GRAVITY >= 1.030 (1.010-1.030) URINE PH 6.0 (5.0-8.0) URINE PROTEIN NEGATIVE (NEGATIVE) URINE UROBILINOGEN 0.2 EU/dL (0.2-1.0) URINE NITRITE NEGATIVE (NEGATIVE) URINE BLOOD 3+ (NEGATIVE) URINE LEUK ESTERASE NEGATIVE (NEGATIVE) URINE RBC 5-10 rbc/hpf (0-1) URINE WBC 3-5 wbc/hpf (0-1) URINE EPITHELIAL CELLS 3-5 EPI/hpf (0-5) URINE BACTERIA TRACE (<1+) (NONE SEEN) URINE COMMENT CULT NOT INDICATED MUCUS 1+URINE CULTURES ARE SET-UP BASED ON THE FOLLOWING CRITERIA:POSITIVE NITRITEPOSITIVE LEUKOCYTE ESTERASEGREATER THAN 10 WHITE BLOOD CELLSMODERATE (2+) OR GREATER BACTERIA CBC w Diff: (FRANCO: 08/27/2016 19:22) ( [facility] 08/27/2016 19:35) Final results Test Result Flag Units (Reference) WHITE BLOOD COUNT 9.0 K/uL (4.5-11.5) RED BLOOD COUNT 4.65 M/uL (4.00-5.20) HEMOGLOBIN 13.9 gm/dL (12.0-16.0) HEMATOCRIT 42.6 % (36.0-46.0) MEAN CELL VOLUME 92 fL (80-100) MEAN CORPUSCULAR HGB 30 pg (26-34) MEAN CORPUSCULAR HGB CONC 33 g/dL (31-37) RED CELL DISTRIBUTION WIDTH 14.7 % (11.6-14.8) PLATELET COUNT 273 K/uL (150-400) NEUTROPHIL % 65.5 % (50-75) LYMPH % 28.3 % (25-40) MONO % 5.6 % (3-14) EOSINOPHIL % 0.5 % (0-4) BASOPHIL % 0.1 % (0-2) PT with INR: (FRANCO: 08/27/2016 19:22) ( [facility] 08/27/2016 19:44) Final results Test Result Flag Units (Reference) INR 1.1 (0.8-1.2) Low Intensity Therapy: INR 1.5-2.0 PT range 18.5-23.1Mod.Intensity Therapy: INR 2.0-3.0 PT range 23.1-31.5High Intensity Therapy: INR 2.5-3.5 PT range 27.4-35.5High Intensity Therapy 2: INR 3.0-4.0 PT range 31.5-39.3 APTT 31 SECONDS (24-34) CMP: (FRANCO: 08/27/2016 19:22) ( [facility] [place] [place] 08/27/2016 20:08) Final results Test Result Flag Units (Reference) GLUCOSE 93 mg/dL (70-110) BUN 12 mg/dL (7-18) CREATININE 0.7 mg/dL (0.6-1.3) Estimated GFR >60 mL/min Estimated GFR- >60 mL/min Note: Persistent reduction over 3 months in eGFR<60 mL/min/1.73 m2 defines CKD. Patients with eGFR values>=60 mL/min/1.73 m2 may also have CKD if evidence ofpersistent proteinuria. Additional information may be foundat www.[email or web address].org. SODIUM 142 mmol/L (136-145) POTASSIUM 4.0 mmol/L (3.5-5.1) CHLORIDE 105 mmol/L (98-107) CARBON DIOXIDE 27 mmol/L (21-32) CALCIUM 9.0 mg/dL (8.5-10.1) TOTAL PROTEIN 8.3 H g/dL (6.4-8.2) ALBUMIN 4.2 g/dL (3.3-5.0) BILIRUBIN, TOTAL 0.5 mg/dL (0.0-1.0) ALKALINE PHOSPHATASE 84 U/L (46-116) AST (SGOT) 15 U/L (15-37) ALT (SGPT) 38 U/L (12-78) LIPASE 173 U/L (73-393) AMYLASE 51 U/L (25-115) BETA HCG, QUANTITATIVE 4080 mIU/mL REFERENCE RANGE:Adult Males: <2 mIU/mLNon- Females: <6 mIU/mL Females:Approximate Approximate hCGGestational Age Range (mIU/mL) 0-1 week 0-501-2 weeks 40-3002-3 weeks 100-40573-3 weeks 500-57909-0 months 5,000-200,0002-3 months 10,000-100,0002nd trimester 3,000-50,0003rd trimester 1,000-50,000 Wet Prep: (FRANCO: 08/27/2016 20:10) ( [facility] 08/27/2016 20:25) Final results SPECIMEN DESCRIPTION: CERVIX Test Result Flag Units (Reference) WET MOUNT CLUE CELLS:: NONE EPITHELIAL CELLS: FEW -- SOURCE?: CERVIX WHITE BLOOD CELLS: MODERATE TRICHOMONAS:: NONE -- YEAST:: NONE Type & Rh: (FRANCO: 08/27/2016 19:22) ( [facility] 08/27/2016 19:47) Final results Test Result Flag Units (Reference) PATIENT BLOOD TYPE AB Positive . PROGRESS AND PROCEDURES Course of Care: 21:25 08/27/16. the case was discussed with Dr. Avila at change of shift. We reviewed the patient's history and physical examination findings and results of her studies thus far. I also reviewed with him the results of my discussion with the on-call PACKAGING TECH provider Dr. Serna. Dr. Avila will follow on the results of the patient's pending ultrasound and will arrange an appropriate disposition for her. - plan of care reviewed. Patient is a follow-up with ultrasound results and laboratory studies. I spoken with ultrasound in regards to patient's workup. Unable to detect heart tones at this time. Spoke with patient's PACKAGING TECH who recommended one of 3 options. Expectant management, medical assistance in passing products of conception, or dilation and curettage. Had long discussion with patient and mother in regards to the treatment plan. The patient had a difficult time in deciding which route to undertake. The patient has normal vital signs here in the emergency department and is non-tachycardic. Hemoglobin and hematocrit are otherwise unremarkable. Patient was deciding on dilation and curettage versus medical assistance in passing products of conception. Had long discussion in regards to all 3 of the options mentioned prior. The patient states that she has a birthday democrat for her children in the morning. 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 Patient stated that she has missed a lot of class and will be having a difficult time in passing if she misses further classes. I discussion patient in regards to her health being the most important aspect of her care at this point in time and school would be coming second. Consulted our PACKAGING TECH in regards to patient's dilation and curettage as patient states that she would like to have it done if she is able to get up at 3:00 the next day. Had consulted our PACKAGING TECH as a request from the patient to explore this possibility. Spoke with PACKAGING TECH in regards to procedure. At this time because of the risks of the procedure, would only do the procedure if the patient's breathing had become significant or if there was other clinical signs of worsening condition such as infection or hemodynamic instability. Patient will be monitored in the hospital and would likely not obtaining her dilation and curettage until after 3 PM and would dismiss her child's birthday democrat. Patient was unhappy with this option and stated that she would "wants to get it over with." Patient states that she would like to have the medication to help pass the products of conception. Had long discussion with patient in regards to her laboratory studies. At this point in time the diagnosis is likely completed . No heart tones noted on ultrasound. The patient also has a drop in her beta hCG which is abnormal given her last beta hCG. Patient also had a prior beta hCG that was drawn in between today's visit and our emergency ddepartment visit which also indicates the beta hCG is dropping. In light of this, patient was informed the high likelihood of miscarriage. again spoke with patient in regards to expected management. Patient again reiterated that she would like to "get it over with." I was called back to the room multiple times and had long discussions with the patient in regards to her treatment plan, diagnosis, and expectant course. Also a long discussion with patient in regards to her workup here in the emergency department in the meaning of her laboratory studies. Also spoken with the mother necrosis. Patient is significantly emotionally affected by the incident. I attempted to console mother myself and with assistance of staff here in the emergency department. Patient is otherwise stable for outpatient management. Patient informed to follow up with her PACKAGING TECH in 1-2 days. I discussion patient in regards to significant vaginal bleeding and when to return to the emergenc Prior to patient's departure from the emergency department, patient reported having passed a "large clot. "I've examined the clot and found the clots to be several small dime-sized clots. No significant large clot noted. Estimated blood volume approximately 3 mL Or less. Patient resting in bed and although emotionally upset, no signs ofanemiaor toxic appearance. Do not the patient is to be admitted to the hospital at that time or require further emergency department evaluation. Patient was offered as much time that she needed to stay in the emergency department in regards to the emotional burdenupon her. Discussed with patient and family as well as significant other workup, diagnosis, home care, follow-up, and return precautions. All questions answered. The patient expressed understanding of these instructions and was agreeable to them. Patient is stable. Critical care performed (95 minutes). Time is exclusive of separately billable procedures. Time includes: direct patient care, patient reassessment, coordination of patient care, interpretation of data (laboratory data), review of patient's medical records, medical consultation, family consultation regarding treatment decisions and documentation of patient care. Patient/family counseled. Old medical records reviewed. Disposition: Discharged. Condition: good. CLINICAL IMPRESSION Moderate vaginal bleeding. 08/27/2016 20:24 BP: 130/76. HR: 88. RR: 16. O2 saturation: 99%. Blood pressure normal. Oxygen saturation normal. Incomplete spontaneous . INSTRUCTIONS Off school for 3 days. (Please take the misoprostol as directed). Warnings: GENERAL WARNINGS: Return or contact your physician immediately if your condition worsens or changes unexpectedly, if not improving as expected, or if other problems arise. Specifically return if pain, vomiting, bleeding, breathing difficulty or fever. weakness, dizziness, or other concerns. Your Current Medications: CONTINUE TAKING THE FOLLOWING MEDICATIONS: Vitamins Oral. Prescription Medications: Percocet 5 mg/325 mg: take 1 tablet orally every 6 hours. Dispense twenty (20). No refill. Substitution is permissible. Follow-up: Return to the emergency department as needed. Follow up with your doctor in three days. Reason for referral: recheck today's concerns. Summary of care provided to patient via paper. 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 Summary of care provided to patient and family via paper. Screening today revealed the patient's blood pressure to be in the normal range. The patient should follow up with a primary care provider for blood pressure management. Understanding of the discharge instructions verbalized by patient. (Electronically signed by Gardy Avila Dr. 08/30/2016 10:41)
--- NOTE | 2016-08-28 00:25 | ED ORDER SUMMARY ---
..... Patient: CULLEN ACHARYA OrderSheet [facility] VisitID: [id number] [address] [place] [address] 21y, F Registration Date/Time: 08/27/2016 ORDER SHEET Weight: 75.7 kg (stated) Allergies: Latex GENERAL ORDERS: GC/Chlamydia (Cervix) (cervix) Urgent (19:02 08/27/2016 Consuelo DUOGN) (Ack 19:16 Janey) (19:25 EInderbitzen R.N.) Wet Prep (Cervix) (cervix) Urgent (19:02 08/27/2016 Consuelo DUONG) (Ack 19:16 Janey) (19:25 EInderbitzen R.N.) CBC w Diff Urgent (19:03 08/27/2016 Consuelo DUONG) (Ack 19:16 Janey) (19:25 EInderbitzen R.N.) CMP Urgent (19:08/27/2016 Consuelo DUONG) (Ack 19:16 Janey) (19:25 EInderbitzen R.N.) UA-Culture if indicated Urgent (19:03 08/27/2016 Consuelo DUONG) (Ack 19:16 Janey) (19:25 EInderbitzen R.N.) PT with INR Urgent (19:03 08/27/2016 Consuelo DUONG) (Ack 19:16 Janey) (19:25 EInderbitzen R.N.) PTT Urgent (19:03 08/27/2016 Consuelo DUONG) (Ack 19:16 Janey) (19:25 EInderbitzen R.N.) Amylase Urgent (19:03 08/27/2016 Consuelo DUONG) (Ack 19:16 Janey) (19:25 EInderbitzen R.N.) Lipase Urgent (19:03 08/27/2016 Consuelo DUONG) (Ack 19:16 Janey) (19:25 EInderbitzen R.N.) Type & Rh Urgent (19:08/27/2016 Consuelo DUONG) (Ack 19:16 Janey) (19:25 EInderbitzen R.N.) Serum Quantitative Urgent (19:03 08/27/2016 Consuelo DUONG) (Ack 19:16 RKaruga) (19:25 EInderbitzen R.N.) Pelvic Exam Setup (19:03 08/27/2016 Consuelo DUONG) (19:25 EInderedwina R.N.) US OB 1st Trimester w Transvag (June 2016) Urgent (20:40 08/27/2016 Consuelo DUONG) (Ack 20:51 LTapper) (23:08 RFay) MEDICATION ORDERS: Acetaminophen PO 1,000 mg (NOW) (21:35 08/27/2016 EIndjessica R.N. verbal order read back to Sonam Newton) (21:35 EInderbebezen R.N.) IV FLUIDS: IV Saline Lock (19:03 08/27/2016 Consuelo DUONG) (Hold 19:26 EInderbebezen R.N.) ORDER SHEET NOTES: [Electronically signed by Juliet Gold R.N. (00:44 08/28/2016)] [Electronically signed by Grady Avila Dr. (10:41 08/30/2016)] [Electronically locked/signed by Juliet Gold R.N. (00:44 08/28/2016)]
--- NOTE | 2016-08-28 00:25 | ED ORDER SUMMARY ---
..... Patient: CULLEN ACHARYA OrderSheet [facility] VisitID: [id number] [address] [place] [address] 21y, F Registration Date/Time: 08/27/2016 ORDER SHEET Weight: 75.7 kg (stated) Allergies: Latex GENERAL ORDERS: GC/Chlamydia (Cervix) (cervix) Urgent (19:02 08/27/2016 Consuelo DUONG) (Ack 19:16 Janey) (19:25 EInderbitzen R.N.) Wet Prep (Cervix) (cervix) Urgent (19:02 08/27/2016 Consuelo DUONG) (Ack 19:16 Janey) (19:25 EInderbitzen R.N.) CBC w Diff Urgent (19:03 08/27/2016 Consuelo DUONG) (Ack 19:16 Janey) (19:25 EInderbitzen R.N.) CMP Urgent (19:08/27/2016 Consuelo DUONG) (Ack 19:16 Janey) (19:25 EInderbitzen R.N.) UA-Culture if indicated Urgent (19:03 08/27/2016 Consuelo DUONG) (Ack 19:16 Janey) (19:25 EInderbitzen R.N.) PT with INR Urgent (19:03 08/27/2016 Consuelo DUONG) (Ack 19:16 Janey) (19:25 EInderbitzen R.N.) PTT Urgent (19:03 08/27/2016 Consuelo DUONG) (Ack 19:16 Janey) (19:25 EInderbitzen R.N.) Amylase Urgent (19:03 08/27/2016 Consuelo DUONG) (Ack 19:16 Janey) (19:25 EInderbitzen R.N.) Lipase Urgent (19:03 08/27/2016 Consuelo DUONG) (Ack 19:16 Janey) (19:25 EInderbitzen R.N.) Type & Rh Urgent (19:08/27/2016 Consuelo DUONG) (Ack 19:16 Janey) (19:25 EInderbitzen R.N.) Serum Quantitative Urgent (19:03 08/27/2016 Consuelo DUONG) (Ack 19:16 RKaruga) (19:25 EInderbitzen R.N.) Pelvic Exam Setup (19:03 08/27/2016 Consuelo DUONG) (19:25 EInderedwina R.N.) US OB 1st Trimester w Transvag (June 2016) Urgent (20:40 08/27/2016 Consuelo DUONG) (Ack 20:51 LTapper) (23:08 RFay) MEDICATION ORDERS: Acetaminophen PO 1,000 mg (NOW) (21:35 08/27/2016 EIndjessica R.N. verbal order read back to Sonam Newton) (21:35 EInderbebezen R.N.) IV FLUIDS: IV Saline Lock (19:03 08/27/2016 Consuelo DUONG) (Hold 19:26 EInderbebezen R.N.) ORDER SHEET NOTES: [Electronically signed by Juliet Gold R.N. (00:44 08/28/2016)] [Electronically signed by Grady Avila Dr. (10:41 08/30/2016)] [Electronically locked/signed by Juliet Gold R.N. (00:44 08/28/2016)]
--- NOTE | 2016-08-30 10:42 | ED MED RECONCILIATION SUMMARY ---
Patient: CULLEN ACHARYA Medication Reconciliation Report [facility] VisitID: [id number] [address] [place] [address] 21y, F Registration Date/Time: 08/27/2016 Weight: 75.7 kg Height/Length: 63 in. BMI: 29.6 ALLERGIES: Latex The patient's Home Medications are listed below: CONTINUE TAKING THE FOLLOWING MEDICATIONS: Vitamins Oral The source(s) of the original Home Medication information: patient The following Medications were given to the patient in the Emergency Department: Acetaminophen [PO] PO 1000 mg, administered: 08/27/2016 9:25:00 PM The following Medications were prescribed to the patient: Percocet 5 mg/325 mg: take 1 tablet orally every 6 hours. Dispense twenty (20). No refill. Substitution is permissible. -- Grady Avila Dr.
--- NOTE | 2016-08-30 10:42 | ED MAR SUMMARY ---
..... Medication Administration Record [facility] [address] [place] [address] Patient: CULLEN ACHARYA Visit ID: [id number] 21y, F Weight: 75.7 kg Height/Length: 63 in BMI: 29.6 ALLERGIES: Latex Given 21:25 08/27/2016 Juliet Gold R.N. Medication Administered: ACETAMINOPHEN [PO] (APAP), Dose: 1000 mg Tablets PO. Medication Ordered: Acetaminophen PO 1,000 mg (NOW).
--- NOTE | 2016-08-30 10:42 | ED DISCHARGE INSTRUCTIONS ---
Patient: CULLEN ACHARYA General Instructions [facility] VisitID: [id number] [place] [address] 21y, F Registration Date/Time: 08/27/2016 Moderate vaginal bleeding. 08/27/2016 20:24 BP: 130/76. HR: 88. RR: 16. O2 saturation: 99%. Blood pressure normal. Oxygen saturation normal. Incomplete spontaneous . INSTRUCTIONS Off school for 3 days. (Please take the misoprostol as directed). Warnings: GENERAL WARNINGS: Return or contact your physician immediately if your condition worsens or changes unexpectedly, if not improving as expected, or if other problems arise. Specifically return if pain, vomiting, bleeding, breathing difficulty or fever. weakness, dizziness, or other concerns. Your Current Medications: CONTINUE TAKING THE FOLLOWING MEDICATIONS: Vitamins Oral. Prescription Medications: Percocet 5 mg/325 mg: take 1 tablet orally every 6 hours. Dispense twenty (20). No refill. Substitution is permissible. Follow-up: Return to the emergency department as needed. Follow up with your doctor in three days. Reason for referral: recheck today's concerns. Summary of care provided to patient via paper. 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 Summary of care provided to patient and family via paper. Screening today revealed the patient's blood pressure to be in the normal range. The patient should follow up with a primary care provider for blood pressure management. Understanding of the discharge instructions verbalized by patient. ADDITIONAL INFORMATION Irregular Vaginal Bleeding This is a condition in which bleeding occurs at unexpected times of the month. The bleeding may be heavier or associate director of nursing than usual. Heavy bleeding may lead to anemia. If severe enough, anemia may cause you to look pale and feel weak or fatigued. You might have shortness of breath even with little exertion. The female hormones produced in your body every month may be out of balance. This imbalance leads to bleeding. Causes could include an ovarian cyst, emotional stress, pelvic infection. Failure to ovulate during your last cycle may also cause this problem. Home Care: If bleeding is heavy, rest and avoid heavy exertion. You may use acetaminophen (Tylenol) or ibuprofen (Motrin, Advil) to control pain, unless another pain medicine was prescribed. [NOTE: If you have chronic liver or kidney disease or ever had a stomach ulcer or GI bleeding, talk with your doctor before using these medicines.] Iron supplements may be prescribed for anemia. It takes about 4-6 weeks for the iron to correct the anemia. Take the medicine as directed. See your doctor for a repeat blood test after you finish the iron treatment. If hormones were prescribed to control your bleeding, take them exactly as directed. If you were prescribed a medicine called Provera (medroxyprogesterone), the bleeding should stop while you are taking it. Another period will start a few days after you finish the medicine. Follow Up with your doctor, or as advised, within the next 1-2 days if heavy bleeding continues. Otherwise, follow up within the next 1-2 weeks. Get Prompt Medical Attention if any of the following occur: Bleeding becomes heavy (soaking one pad an hour for three hours) Fever of 100.4F (38C) or higher, or as directed by your healthcare provider Increase in abdominal pain Weakness, dizziness or fainting Miscarriage (Incomplete) Todays exam shows that your has ended suddenly. While this may be an emotionally difficult time for you, know that it is not an uncommon event. A miscarriage can be due to various causes. These include a problem with the babys chromosomes (genes that carry the information needed for life) or with fertilization or implantation that didnt happen correctly. In most cases no cause can be found. Be assured that this miscarriage was not the result of anything that you did wrong, and it will not interfere with your ability to become in the future. It appears that your miscarriage is not yet complete. There is still some tissue from the in the uterus. You will probably have more cramping and bleeding for the next few days as the uterus expels the tissue. In many cases all of the tissue will pass by itself. But sometimes tissue remains and it must be removed to stop bleeding and prevent infection. Home Care: You may resume normal activities if you are not having heavy bleeding or pain. Until the bleeding stops completely and to prevent infection: Do not have sexual intercourse for as long as the healthcare provider tells you. Use sanitary napkins instead of tampons. Do not douche. If you feel sadness or grief, it may help to talk about your feelings with family and friends, or with a counselor. Follow Up: Make an appointment to see your doctor as directed by our staff. tissue will appear as a one-inch or larger piece of encarnacion or pink flesh. If tissue has not passed from the vagina within the next 5 days, you need to be seen by your doctor for another exam. To prevent infection in the uterus, it may be necessary to remove the tissue through a surgical procedure. Or, you may be prescribed medication to take at home to help your body expel the remaining tissue. Get Prompt Medical Attention if any of the following occur: Heavy bleeding (soaking one new pad an hour over three hours) Foul-smelling vaginal discharge Fever of 100.4F (38C) or higher, or as directed by your healthcare provider Increasing lower abdominal pain Weakness, dizziness, or fainting Oxycodone Hydrochloride, Acetaminophen Oral tablet What is this medicine? ACETAMINOPHEN; OXYCODONE (a set a SETH ernesto fen; ox i KOE done) is a pain reliever. It is used to treat mild to moderate pain. How should I use this medicine? Take this medicine by mouth with a full glass of water. Follow the directions on the prescription label. Take your medicine at regular intervals. Do not take your medicine more often than directed. Talk to your statistical programmer regarding the use of this medicine in children. Special care may be needed. Patients over 65 years old may have a stronger reaction and need a smaller dose. What side effects may I notice from receiving this medicine? Side effects that you should report to your doctor or health floor care specialist as soon as possible: allergic reactions like skin rash, itching or hives, swelling of the face, lips, or tongue breathing difficulties, wheezing confusion light headedness or fainting spells severe stomach pain yellowing of the skin or the whites of the eyes Side effects that usually do not require medical attention (report to your doctor or health floor care specialist if they continue or are bothersome): dizziness drowsiness nausea vomiting What may interact with this medicine? alcohol antihistamines barbiturates like amobarbital, butalbital, butabarbital, methohexital, pentobarbital, phenobarbital, thiopental, and secobarbital benztropine drugs for bladder problems like solifenacin, trospium, oxybutynin, tolterodine, hyoscyamine, and methscopolamine drugs for breathing problems like ipratropium and tiotropium drugs for certain stomach or intestine problems like propantheline, homatropine methylbromide, glycopyrrolate, atropine, belladonna, and dicyclomine general anesthetics like etomidate, ketamine, nitrous oxide, propofol, desflurane, enflurane, halothane, isoflurane, and sevoflurane medicines for depression, anxiety, or psychotic disturbances medicines for sleep muscle relaxants naltrexone narcotic medicines (opiates) for pain phenothiazines like perphenazine, thioridazine, chlorpromazine, mesoridazine, fluphenazine, prochlorperazine, promazine, and trifluoperazine scopolamine tramadol trihexyphenidyl What if I miss a dose? If you miss a dose, take it as soon as you can. If it is almost time for your next dose, take only that dose. Do not take double or extra doses. Where should I keep my medicine? Keep out of the reach of children. This medicine can be abused. Keep your medicine in a safe place to protect it from theft. Do not share this medicine with anyone. Selling or giving away this medicine is dangerous and against the law. Store at room temperature between 20 and 25 degrees C (68 and 77 degrees F). Keep container tightly closed. Protect from light. This medicine may cause accidental overdose and if it is taken by other adults, children, or pets. Flush any unused medicine down the toilet to reduce the chance of harm. Do not use the medicine after the expiration date. What should I tell my health care provider before I take this medicine? They need to know if you have any of these conditions: brain tumor Crohn's disease, inflammatory bowel disease, or ulcerative colitis drink more than 3 alcohol containing drinks per day drug abuse or addiction head injury heart or circulation problems kidney disease or problems going to the bathroom liver disease lung disease, asthma, or breathing problems an unusual or allergic reaction to acetaminophen, oxycodone, other opioid analgesics, other medicines, foods, dyes, or preservatives or trying to get breast-feeding What should I watch for while using this medicine? Tell your doctor or health floor care specialist if your pain does not go away, if it gets worse, or if you have new or a different type of pain. You may develop tolerance to the medicine. Tolerance means that you will need a higher dose of the medication for pain relief. Tolerance is normal and is expected if you take this medicine for a long time. Do not suddenly stop taking your medicine because you may develop a severe reaction. Your body becomes used to the medicine. This does NOT mean you are addicted. Addiction is a behavior related to getting and using a drug for a non-medical reason. If you have pain, you have a medical reason to take pain medicine. Your doctor will tell you how much medicine to take. If your doctor wants you to stop the medicine, the dose will be slowly lowered over time to avoid any side effects. You may get drowsy or dizzy. Do not drive, use machinery, or do anything that needs mental alertness until you know how this medicine affects you. Do not stand or sit up quickly, especially if you are an older patient. This reduces the risk of dizzy or fainting spells. Alcohol may interfere with the effect of this medicine. Avoid alcoholic drinks. There are different types of narcotic medicines (opiates) for pain. If you take more than one type at the same time, you may have more side effects. Give your health care provider a list of all medicines you use. Your doctor will tell you how much medicine to take. Do not take more medicine than directed. Call emergency for help if you have problems breathing. The medicine will cause constipation. Try to have a bowel movement at least every 2 to 3 days. If you do not have a bowel movement for 3 days, call your doctor or health floor care specialist. Do not take Tylenol (acetaminophen) or medicines that have acetaminophen with this medicine. Too much acetaminophen can be very dangerous. Many nonprescription medicines contain acetaminophen. Always read the labels carefully to avoid taking more acetaminophen. You have been given the following additional information: Dysfunctional Uterine Bleeding Miscarriage (Incomplete) Oxycodone Hydrochloride, Acetaminophen Oral tablet Off school for 3 days. (Electronically signed by Grady Avila Dr. 08/30/2016 10:41)
--- NOTE | 2016-08-30 10:42 | ED MED RECONCILIATION SUMMARY ---
Patient: CULLEN ACHARYA Medication Reconciliation Report [facility] VisitID: [id number] [address] [place] [address] 21y, F Registration Date/Time: 08/27/2016 Weight: 75.7 kg Height/Length: 63 in. BMI: 29.6 ALLERGIES: Latex The patient's Home Medications are listed below: CONTINUE TAKING THE FOLLOWING MEDICATIONS: Vitamins Oral The source(s) of the original Home Medication information: patient The following Medications were given to the patient in the Emergency Department: Acetaminophen [PO] PO 1000 mg, administered: 08/27/2016 9:25:00 PM The following Medications were prescribed to the patient: Percocet 5 mg/325 mg: take 1 tablet orally every 6 hours. Dispense twenty (20). No refill. Substitution is permissible. -- Grady Avila Dr.
--- NOTE | 2016-08-30 10:42 | ED MAR SUMMARY ---
..... Medication Administration Record [facility] [address] [place] [address] Patient: CULLEN ACHARYA Visit ID: [id number] 21y, F Weight: 75.7 kg Height/Length: 63 in BMI: 29.6 ALLERGIES: Latex Given 21:25 08/27/2016 Juliet Gold R.N. Medication Administered: ACETAMINOPHEN [PO] (APAP), Dose: 1000 mg Tablets PO. Medication Ordered: Acetaminophen PO 1,000 mg (NOW).
== END 2016-08-28 00:43 | disposition home or self-care (01) ==
LOC: ED SRH 18:47
DX: O03.4 Incomplete spontaneous abortion without complication (principal)
CPT/HCPCS: 90001; 90004; 90100; 90155; 90195; 90197; 91227; 91228; 92235; 92530; 94001; 94060; 95059

== ENCOUNTER 2016-12-05 05:38 | Emergency (ER) | payer OTHER ==
--- NOTE | 2016-12-05 06:06 | ED NURSING NOTES ---
Clinical Report - Nurses [facility] [address] [place] [address] 12/05/2016 5:39 Patient: CULLEN ACHARYA TRIAGE Triage time 05:43. Acuity: LEVEL 4. Chief Complaint: LEFT EAR PAIN. --05:46 Manuel Liu R.N. 05:43 12/05/16. BP: 133/86. HR: 91. RR: 18. O2 saturation: 96%. Temp: 98.2 F. Pain level now 03/23. --05:46 Manuel Liu R.N. Weight: 78 kg stated. Height/Length: 63 inches Per Patient. BMI: 30.5. --05:44 Manuel Liu R.N. Medications None. --05:45 Manuel Liu R.N. Medication/allergy information source: the patient. --05:46 Manuel Liu R.N. Allergies Latex. --05:45 Manuel Liu R.N. History This started just prior to arrival. ( About an hr ago, she fell on a q-tip. The entire q-tip was pushed into the ear. Pt stated there was bleeding and she is not able to hear out of the left ear.). 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 SOCIAL HX: Never smoker. No alcohol use or drug use. --05:46 Manuel Liu R.N. PROBLEMS: . Endometriosis. Intrauterine . Vaginal Bleeding. Cervical erosion. Abdominal Pain. Headache. Vaginitis. Vaginal Discharge. UTI - Urinary Tract Infection. OB History. Hyperemesis Gravidarum. Nephrolithiasis. Heart Murmur. Immunizations. LNMP - Last Normal Menstrual Period. . --05:45 Manuel Liu R.N. Interventions ID band on patient. To treatment room. --05:46 Manuel Liu R.N. PHYSICAL ASSESSMENT GENERAL / NEURO / PSYCH: Alert. Appears in pain. HEENT: No facial asymmetry noted. Pupils equal, round and reactive to light. EOM intact. Right ear within normal limits. Visualized foreign body in the left ear: q-tip. Nares within normal limits. Pharynx within normal limits. ( was bleeding, but is no longer bleeding or drainage.). RESPIRATORY: Respirations not labored. CVS: Capillary refill less than 2 seconds. SKIN: Skin is warm and dry. --05:47 Manuel Liu R.N. NURSING PROGRESS NOTES Two patient identifiers checked. Call light placed in reach. Side rails up x 1. Bed placed in lowest position. Brakes of bed on. --05:47 Manuel Liu R.N. MARCY COMA SCORE: [place] Coma Scale: 15- eyes open spontaneously (4); best verbal response- oriented x 4 (5); best motor response- obeys commands (6). --:47 Manuel Liu R.N. 06:10 12/05/2016 Oxycodone-APAP (Oxycodone-Acetaminophen) PO 10/650 mg Tablets 2 tab given. Allergies verified, confirmed 5 rights and sedative warning given to the patient and patient's plater production. --06:10 Manuel Liu R.N. DISPOSITION / DISCHARGE Departure time: 06:17. Condition at departure: stable. The goals identified in the patient's plan of care were met. No learning barriers present. Discharge instructions provided and reviewed with the patient. Reviewed medication(s) side effects, precautions, dosing and course information. Prescription(s) given to the patient (Cullen verbalizes importance of not driving and/or operating heavy machinery while under influence of narcotics. She verbalizes safe, proper use of prescribed narcotics for optimal pain management at home.). Reviewed referral to an ear, nose, and throat specialist (hoop maker) for followup (Cullen verbalizes importance of immediate f/u with ENT Dr. Duffy. Told her we will call the office at 0900 to advise office of her case.). Patient verbalized understanding. Written instructions provided in Nigerien. ( Cullen verbalizes understanding of all d/c instructions including need to f/u with ENT and keep water out of ear. She has no questions and voices no concerns at this time.). The patient was discharged by the physician. She was discharged home and accompanied by spouse. She left the Emergency Department ambulatory and via private vehicle. Spouse driving. MARCY COMA SCORE: [place] Coma Scale: 15- eyes open spontaneously (4); best verbal response- oriented x 4 (5); best motor response- obeys commands (6). --06:19 Alonso Capone R.N. 06:17 12/05/16. BP: deferred. HR: deferred. RR: deferred. O2 saturation: deferred. Temp: deferred. Pain level now deferred. --06:19 Alonso Capone R.N. Locked/Released at 12/05/2016 6:19 by Alonso Capone R.N.
--- NOTE | 2016-12-05 06:06 | ED NURSING NOTES ---
Clinical Report - Nurses [facility] [address] [place] [address] 12/05/2016 5:39 Patient: CULLEN ACHARYA TRIAGE Triage time 05:43. Acuity: LEVEL 4. Chief Complaint: LEFT EAR PAIN. --05:46 Manuel Liu R.N. 05:43 12/05/16. BP: 133/86. HR: 91. RR: 18. O2 saturation: 96%. Temp: 98.2 F. Pain level now 03/23. --05:46 Manuel Liu R.N. Weight: 78 kg stated. Height/Length: 63 inches Per Patient. BMI: 30.5. --05:44 Manuel Liu R.N. Medications None. --05:45 Manuel Liu R.N. Medication/allergy information source: the patient. --05:46 Manuel Liu R.N. Allergies Latex. --05:45 Manuel Liu R.N. History This started just prior to arrival. ( About an hr ago, she fell on a q-tip. The entire q-tip was pushed into the ear. Pt stated there was bleeding and she is not able to hear out of the left ear.). 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 SOCIAL HX: Never smoker. No alcohol use or drug use. --05:46 Manuel Liu R.N. PROBLEMS: . Endometriosis. Intrauterine . Vaginal Bleeding. Cervical erosion. Abdominal Pain. Headache. Vaginitis. Vaginal Discharge. UTI - Urinary Tract Infection. OB History. Hyperemesis Gravidarum. Nephrolithiasis. Heart Murmur. Immunizations. LNMP - Last Normal Menstrual Period. . --05:45 Manuel Liu R.N. Interventions ID band on patient. To treatment room. --05:46 Manuel Liu R.N. PHYSICAL ASSESSMENT GENERAL / NEURO / PSYCH: Alert. Appears in pain. HEENT: No facial asymmetry noted. Pupils equal, round and reactive to light. EOM intact. Right ear within normal limits. Visualized foreign body in the left ear: q-tip. Nares within normal limits. Pharynx within normal limits. ( was bleeding, but is no longer bleeding or drainage.). RESPIRATORY: Respirations not labored. CVS: Capillary refill less than 2 seconds. SKIN: Skin is warm and dry. --05:47 Manuel Liu R.N. NURSING PROGRESS NOTES Two patient identifiers checked. Call light placed in reach. Side rails up x 1. Bed placed in lowest position. Brakes of bed on. --05:47 Manuel Liu R.N. MARCY COMA SCORE: [place] Coma Scale: 15- eyes open spontaneously (4); best verbal response- oriented x 4 (5); best motor response- obeys commands (6). --:47 Manuel Liu R.N. 06:10 12/05/2016 Oxycodone-APAP (Oxycodone-Acetaminophen) PO 10/650 mg Tablets 2 tab given. Allergies verified, confirmed 5 rights and sedative warning given to the patient and patient's obstetrics teacher. --06:10 Manuel Liu R.N. DISPOSITION / DISCHARGE Departure time: 06:17. Condition at departure: stable. The goals identified in the patient's plan of care were met. No learning barriers present. Discharge instructions provided and reviewed with the patient. Reviewed medication(s) side effects, precautions, dosing and course information. Prescription(s) given to the patient (Cullen verbalizes importance of not driving and/or operating heavy machinery while under influence of narcotics. She verbalizes safe, proper use of prescribed narcotics for optimal pain management at home.). Reviewed referral to an ear, nose, and throat specialist (controller instructor) for followup (Cullen verbalizes importance of immediate f/u with ENT Dr. Duffy. Told her we will call the office at 0900 to advise office of her case.). Patient verbalized understanding. Written instructions provided in Dominican. ( Cullen verbalizes understanding of all d/c instructions including need to f/u with ENT and keep water out of ear. She has no questions and voices no concerns at this time.). The patient was discharged by the physician. She was discharged home and accompanied by spouse. She left the Emergency Department ambulatory and via private vehicle. Spouse driving. MARCY COMA SCORE: [place] Coma Scale: 15- eyes open spontaneously (4); best verbal response- oriented x 4 (5); best motor response- obeys commands (6). --06:19 Alonso Capone R.N. 06:17 12/05/16. BP: deferred. HR: deferred. RR: deferred. O2 saturation: deferred. Temp: deferred. Pain level now deferred. --06:19 Alonso Capone R.N. Locked/Released at 12/05/2016 6:19 by Alonso Capone R.N.
--- NOTE | 2016-12-05 06:06 | ED CLINICAL REPORT ---
Clinical Report - Physicians/Mid Levels [facility] [address] [place] [address] 12/05/2016 5:39 Patient: CULLEN ACHARYA Time Seen: 05:59 Dec 05 2016. Arrived- By private vehicle. Historian- patient. CPT: ER phys charges level 3 (#[id number]). HISTORY OF PRESENT ILLNESS Chief Complaint: EARACHE. This started today ( About an hr ago, she fell on a q-tip. The entire q-tip was pushed into the ear. Pt stated there was bleeding and she is not able to hear out of the left ear.). and is still present. Onset during light activity. Modifying factors. Not worsened by anything. Not relieved by anything. Location- left ear. The pain is described as moderate. The patient has had ear pain and hearing loss. She has a foreign body (q-tip) in the left ear. No ear drainage or nasal discharge or congestion. Similar symptoms previously: None. Recent medical care: Not recently seen/assessed. REVIEW OF SYSTEMS No fever, chills, cough, nausea or vomiting. No diarrhea, skin rash or enlarged lymph nodes. All systems otherwise negative, except as recorded above. PAST HISTORY . Endometriosis. Intrauterine . Vaginal Bleeding. Cervical erosion. Abdominal Pain. Headache. Vaginitis. Vaginal Discharge. UTI - Urinary Tract Infection. OB History. Hyperemesis Gravidarum. Nephrolithiasis. Heart Murmur. Medications: None. Allergies: Latex. SOCIAL HISTORY Never smoker. No alcohol use or drug use. ADDITIONAL NOTES The nursing notes have been reviewed. PHYSICAL EXAM Vital Signs: 12/05/2016 05:43 BP: 133/86. HR: 91. RR: 18. O2 saturation: 96%. Temp: 98.2 F. Appearance: Alert. Eyes: Eyes normal inspection. Throat: Pharynx normal. Ear (left): There is loss of tympanic membrane landmarks, an abnormal light reflex and a large perforation of the tympanic membrane. Ear (right): Right tympanic membrane normal. Nose: Nose normal. CVS: Normal heart rate and rhythm. Skin: Normal skin color. Neuro: Oriented X 3. PROGRESS AND PROCEDURES Course of Care: Large TM rupture due to trauma from q-tip. Will need to see ENT in the morning to further evaluate. Percocet 2 po Patient is stable. Patient/family counseled. Disposition: Discharged. Condition: stable and improved. CLINICAL IMPRESSION Left Traumatic ear drum perforation Hearing loss left ear due to trauma. INSTRUCTIONS Do not allow water in ear. Drink plenty of fluids. Warnings: Further evaluation is necessary. GENERAL WARNINGS: Return or contact your physician immediately if your condition worsens or changes unexpectedly, if not improving as expected, or if other problems arise. Prescription Medications: Oxycodone/APAP 5 mg/325 mg: take 1-2 tablets orally every 6 hours as needed for pain. Dispense twenty (20). No refill. Understanding of the discharge instructions verbalized by patient. Discharge instructions reviewed with and understanding was verbalized by designer/writer. Follow-up with: Yang Duffy MD, ENT, , [address], , [place], [id number] Follow up tomorrow in one day. Call for the next available appointment. Reason for referral: punctured eardrum. (Electronically signed by Yohannes Townsend MD 12/12/2016 15:58) Addenda for CULLEN ACHARYA VisitID: [id number] Date: 12/05/2016 12/05/2016 9:12 Spoke with ENT offce, Dr. Duffy, informed that they should call pt for appt today for follow up. They explained that we should call patient and her to schedule appt. Called Cullen and spoke with her over the phone. Cullen will call this morning to get an appt scheduled as soon as possible for follow up care. (Electronically signed by Karthikeyan Caballero R.N. - 12/05/2016 9:12)
--- NOTE | 2016-12-05 06:06 | ED ORDER SUMMARY ---
..... Patient: CULLEN ACHARYA OrderSheet [facility] VisitID: [id number] [address] [place] [address] 21y, F Registration Date/Time: 12/05/2016 ORDER SHEET Weight: 78.0 kg (stated) Allergies: Latex GENERAL ORDERS: MEDICATION ORDERS: Oxycodone-APAP PO 10/650 mg (NOW) (06:05 12/05/2016 Sukumar DUONG) (6:10 Tonywinessa R.N.) IV FLUIDS: ORDER SHEET NOTES: [Electronically signed by Alonso Capone R.N. (06:19 12/05/2016)] [Electronically signed by Yohannes Townsend MD (15:58 12/12/2016)] [Electronically locked/signed by Alonso Capone R.N. (06:19 12/05/2016)]
--- NOTE | 2016-12-05 06:06 | ED CLINICAL REPORT ---
Clinical Report - Physicians/Mid Levels [facility] [address] [place] [address] 12/05/2016 5:39 Patient: CULLEN ACHARYA Time Seen: 05:59 Dec 05 2016. Arrived- By private vehicle. Historian- patient. CPT: ER phys charges level 3 (#[id number]). HISTORY OF PRESENT ILLNESS Chief Complaint: EARACHE. This started today ( About an hr ago, she fell on a q-tip. The entire q-tip was pushed into the ear. Pt stated there was bleeding and she is not able to hear out of the left ear.). and is still present. Onset during light activity. Modifying factors. Not worsened by anything. Not relieved by anything. Location- left ear. The pain is described as moderate. The patient has had ear pain and hearing loss. She has a foreign body (q-tip) in the left ear. No ear drainage or nasal discharge or congestion. Similar symptoms previously: None. Recent medical care: Not recently seen/assessed. REVIEW OF SYSTEMS No fever, chills, cough, nausea or vomiting. No diarrhea, skin rash or enlarged lymph nodes. All systems otherwise negative, except as recorded above. PAST HISTORY . Endometriosis. Intrauterine . Vaginal Bleeding. Cervical erosion. Abdominal Pain. Headache. Vaginitis. Vaginal Discharge. UTI - Urinary Tract Infection. OB History. Hyperemesis Gravidarum. Nephrolithiasis. Heart Murmur. Medications: None. Allergies: Latex. SOCIAL HISTORY Never smoker. No alcohol use or drug use. ADDITIONAL NOTES The nursing notes have been reviewed. PHYSICAL EXAM Vital Signs: 12/05/2016 05:43 BP: 133/86. HR: 91. RR: 18. O2 saturation: 96%. Temp: 98.2 F. Appearance: Alert. Eyes: Eyes normal inspection. Throat: Pharynx normal. Ear (left): There is loss of tympanic membrane landmarks, an abnormal light reflex and a large perforation of the tympanic membrane. Ear (right): Right tympanic membrane normal. Nose: Nose normal. CVS: Normal heart rate and rhythm. Skin: Normal skin color. Neuro: Oriented X 3. PROGRESS AND PROCEDURES Course of Care: Large TM rupture due to trauma from q-tip. Will need to see ENT in the morning to further evaluate. Percocet 2 po Patient is stable. Patient/family counseled. Disposition: Discharged. Condition: stable and improved. CLINICAL IMPRESSION Left Traumatic ear drum perforation Hearing loss left ear due to trauma. INSTRUCTIONS Do not allow water in ear. Drink plenty of fluids. Warnings: Further evaluation is necessary. GENERAL WARNINGS: Return or contact your physician immediately if your condition worsens or changes unexpectedly, if not improving as expected, or if other problems arise. Prescription Medications: Oxycodone/APAP 5 mg/325 mg: take 1-2 tablets orally every 6 hours as needed for pain. Dispense twenty (20). No refill. Understanding of the discharge instructions verbalized by patient. Discharge instructions reviewed with and understanding was verbalized by sand operator. Follow-up with: Yang Duffy MD, ENT, , [address], , [place], [id number] Follow up tomorrow in one day. Call for the next available appointment. Reason for referral: punctured eardrum. (Electronically signed by Yohannes Townsend MD 12/12/2016 15:58) Addenda for CULLEN ACHARYA VisitID: [id number] Date: 12/05/2016 12/05/2016 9:12 Spoke with ENT offce, Dr. Duffy, informed that they should call pt for appt today for follow up. They explained that we should call patient and her to schedule appt. Called [place] and spoke with her over the phone. Cullen will call this morning to get an appt scheduled as soon as possible for follow up care. (Electronically signed by Karthikeyan Caballero R.N. - 12/05/2016 9:12)
--- NOTE | 2016-12-05 06:06 | ED ORDER SUMMARY ---
..... Patient: CULLEN ACHARYA OrderSheet [facility] VisitID: [id number] [address] [place] [address] 21y, F Registration Date/Time: 12/05/2016 ORDER SHEET Weight: 78.0 kg (stated) Allergies: Latex GENERAL ORDERS: MEDICATION ORDERS: Oxycodone-APAP PO 10/650 mg (NOW) (06:05 12/05/2016 Sukumar DUONG) (6:10 Tonywinessa R.N.) IV FLUIDS: ORDER SHEET NOTES: [Electronically signed by Alonso Capone R.N. (06:19 12/05/2016)] [Electronically signed by Yohannes Townsend MD (15:58 12/12/2016)] [Electronically locked/signed by Alonso Capone R.N. (06:19 12/05/2016)]
--- NOTE | 2016-12-12 15:58 | ED DISCHARGE INSTRUCTIONS ---
Patient: CULLEN ACHARYA General Instructions [facility] VisitID: [id number] [place] [address] 21y, F Registration Date/Time: 12/05/2016 Left Traumatic ear drum perforation Hearing loss left ear due to trauma. INSTRUCTIONS Do not allow water in ear. Drink plenty of fluids. Warnings: Further evaluation is necessary. GENERAL WARNINGS: Return or contact your physician immediately if your condition worsens or changes unexpectedly, if not improving as expected, or if other problems arise. Prescription Medications: Oxycodone/APAP 5 mg/325 mg: take 1-2 tablets orally every 6 hours as needed for pain. Dispense twenty (20). No refill. Understanding of the discharge instructions verbalized by patient. Discharge instructions reviewed with and understanding was verbalized by cop winder. Follow-up with: Yang Duffy MD, ENT, , [address] , , [place], [id number] Follow up tomorrow in one day. Call for the next available appointment. Reason for referral: punctured eardrum. ADDITIONAL INFORMATION Oxycodone Hydrochloride, Acetaminophen Oral tablet What is this medicine? ACETAMINOPHEN; OXYCODONE (a set a SETH ernesto fen; ox i KOE done) is a pain reliever. It is used to treat mild to moderate pain. How should I use this medicine? Take this medicine by mouth with a full glass of water. Follow the directions on the prescription label. Take your medicine at regular intervals. Do not take your medicine more often than directed. Talk to your property controller regarding the use of this medicine in children. Special care may be needed. Patients over 65 years old may have a stronger reaction and need a smaller dose. What side effects may I notice from receiving this medicine? Side effects that you should report to your doctor or health healthcare social worker as soon as possible: allergic reactions like skin rash, itching or hives, swelling of the face, lips, or tongue breathing difficulties, wheezing confusion light headedness or fainting spells severe stomach pain yellowing of the skin or the whites of the eyes Side effects that usually do not require medical attention (report to your doctor or health healthcare social worker if they continue or are bothersome): dizziness drowsiness nausea vomiting What may interact with this medicine? alcohol antihistamines barbiturates like amobarbital, butalbital, butabarbital, methohexital, pentobarbital, phenobarbital, thiopental, and secobarbital benztropine drugs for bladder problems like solifenacin, trospium, oxybutynin, tolterodine, hyoscyamine, and methscopolamine drugs for breathing problems like ipratropium and tiotropium drugs for certain stomach or intestine problems like propantheline, homatropine methylbromide, glycopyrrolate, atropine, belladonna, and dicyclomine general anesthetics like etomidate, ketamine, nitrous oxide, propofol, desflurane, enflurane, halothane, isoflurane, and sevoflurane medicines for depression, anxiety, or psychotic disturbances medicines for sleep muscle relaxants naltrexone narcotic medicines (opiates) for pain phenothiazines like perphenazine, thioridazine, chlorpromazine, mesoridazine, fluphenazine, prochlorperazine, promazine, and trifluoperazine scopolamine tramadol trihexyphenidyl What if I miss a dose? If you miss a dose, take it as soon as you can. If it is almost time for your next dose, take only that dose. Do not take double or extra doses. Where should I keep my medicine? Keep out of the reach of children. This medicine can be abused. Keep your medicine in a safe place to protect it from theft. Do not share this medicine with anyone. Selling or giving away this medicine is dangerous and against the law. Store at room temperature between 20 and 25 degrees C (68 and 77 degrees F). Keep container tightly closed. Protect from light. This medicine may cause accidental overdose and if it is taken by other adults, children, or pets. Flush any unused medicine down the toilet to reduce the chance of harm. Do not use the medicine after the expiration date. What should I tell my health care provider before I take this medicine? They need to know if you have any of these conditions: brain tumor Crohn's disease, inflammatory bowel disease, or ulcerative colitis drink more than 3 alcohol containing drinks per day drug abuse or addiction head injury heart or circulation problems kidney disease or problems going to the bathroom liver disease lung disease, asthma, or breathing problems an unusual or allergic reaction to acetaminophen, oxycodone, other opioid analgesics, other medicines, foods, dyes, or preservatives or trying to get breast-feeding What should I watch for while using this medicine? Tell your doctor or health healthcare social worker if your pain does not go away, if it gets worse, or if you have new or a different type of pain. You may develop tolerance to the medicine. Tolerance means that you will need a higher dose of the medication for pain relief. Tolerance is normal and is expected if you take this medicine for a long time. Do not suddenly stop taking your medicine because you may develop a severe reaction. Your body becomes used to the medicine. This does NOT mean you are addicted. Addiction is a behavior related to getting and using a drug for a non-medical reason. If you have pain, you have a medical reason to take pain medicine. Your doctor will tell you how much medicine to take. If your doctor wants you to stop the medicine, the dose will be slowly lowered over time to avoid any side effects. You may get drowsy or dizzy. Do not drive, use machinery, or do anything that needs mental alertness until you know how this medicine affects you. Do not stand or sit up quickly, especially if you are an older patient. This reduces the risk of dizzy or fainting spells. Alcohol may interfere with the effect of this medicine. Avoid alcoholic drinks. There are different types of narcotic medicines (opiates) for pain. If you take more than one type at the same time, you may have more side effects. Give your health care provider a list of all medicines you use. Your doctor will tell you how much medicine to take. Do not take more medicine than directed. Call emergency for help if you have problems breathing. The medicine will cause constipation. Try to have a bowel movement at least every 2 to 3 days. If you do not have a bowel movement for 3 days, call your doctor or health healthcare social worker. Do not take Tylenol (acetaminophen) or medicines that have acetaminophen with this medicine. Too much acetaminophen can be very dangerous. Many nonprescription medicines contain acetaminophen. Always read the labels carefully to avoid taking more acetaminophen. You have been given the following additional information: Oxycodone Hydrochloride, Acetaminophen Oral tablet Do not allow water in ear. (Electronically signed by Yohannes Townsend MD 12/12/2016 15:58)
--- NOTE | 2016-12-12 15:58 | ED DISCHARGE INSTRUCTIONS ---
Patient: CULLEN ACHARYA General Instructions [facility] VisitID: [id number] [place] [address] 21y, F Registration Date/Time: 12/05/2016 Left Traumatic ear drum perforation Hearing loss left ear due to trauma. INSTRUCTIONS Do not allow water in ear. Drink plenty of fluids. Warnings: Further evaluation is necessary. GENERAL WARNINGS: Return or contact your physician immediately if your condition worsens or changes unexpectedly, if not improving as expected, or if other problems arise. Prescription Medications: Oxycodone/APAP 5 mg/325 mg: take 1-2 tablets orally every 6 hours as needed for pain. Dispense twenty (20). No refill. Understanding of the discharge instructions verbalized by patient. Discharge instructions reviewed with and understanding was verbalized by engraver steel plate. Follow-up with: Yang Duffy MD, ENT, , [address] , , [place], [id number] Follow up tomorrow in one day. Call for the next available appointment. Reason for referral: punctured eardrum. ADDITIONAL INFORMATION Oxycodone Hydrochloride, Acetaminophen Oral tablet What is this medicine? ACETAMINOPHEN; OXYCODONE (a set a SETH ernesto fen; ox i KOE done) is a pain reliever. It is used to treat mild to moderate pain. How should I use this medicine? Take this medicine by mouth with a full glass of water. Follow the directions on the prescription label. Take your medicine at regular intervals. Do not take your medicine more often than directed. Talk to your frame trimmer regarding the use of this medicine in children. Special care may be needed. Patients over 65 years old may have a stronger reaction and need a smaller dose. What side effects may I notice from receiving this medicine? Side effects that you should report to your doctor or health critical care physician assistant as soon as possible: allergic reactions like skin rash, itching or hives, swelling of the face, lips, or tongue breathing difficulties, wheezing confusion light headedness or fainting spells severe stomach pain yellowing of the skin or the whites of the eyes Side effects that usually do not require medical attention (report to your doctor or health critical care physician assistant if they continue or are bothersome): dizziness drowsiness nausea vomiting What may interact with this medicine? alcohol antihistamines barbiturates like amobarbital, butalbital, butabarbital, methohexital, pentobarbital, phenobarbital, thiopental, and secobarbital benztropine drugs for bladder problems like solifenacin, trospium, oxybutynin, tolterodine, hyoscyamine, and methscopolamine drugs for breathing problems like ipratropium and tiotropium drugs for certain stomach or intestine problems like propantheline, homatropine methylbromide, glycopyrrolate, atropine, belladonna, and dicyclomine general anesthetics like etomidate, ketamine, nitrous oxide, propofol, desflurane, enflurane, halothane, isoflurane, and sevoflurane medicines for depression, anxiety, or psychotic disturbances medicines for sleep muscle relaxants naltrexone narcotic medicines (opiates) for pain phenothiazines like perphenazine, thioridazine, chlorpromazine, mesoridazine, fluphenazine, prochlorperazine, promazine, and trifluoperazine scopolamine tramadol trihexyphenidyl What if I miss a dose? If you miss a dose, take it as soon as you can. If it is almost time for your next dose, take only that dose. Do not take double or extra doses. Where should I keep my medicine? Keep out of the reach of children. This medicine can be abused. Keep your medicine in a safe place to protect it from theft. Do not share this medicine with anyone. Selling or giving away this medicine is dangerous and against the law. Store at room temperature between 20 and 25 degrees C (68 and 77 degrees F). Keep container tightly closed. Protect from light. This medicine may cause accidental overdose and if it is taken by other adults, children, or pets. Flush any unused medicine down the toilet to reduce the chance of harm. Do not use the medicine after the expiration date. What should I tell my health care provider before I take this medicine? They need to know if you have any of these conditions: brain tumor Crohn's disease, inflammatory bowel disease, or ulcerative colitis drink more than 3 alcohol containing drinks per day drug abuse or addiction head injury heart or circulation problems kidney disease or problems going to the bathroom liver disease lung disease, asthma, or breathing problems an unusual or allergic reaction to acetaminophen, oxycodone, other opioid analgesics, other medicines, foods, dyes, or preservatives or trying to get breast-feeding What should I watch for while using this medicine? Tell your doctor or health critical care physician assistant if your pain does not go away, if it gets worse, or if you have new or a different type of pain. You may develop tolerance to the medicine. Tolerance means that you will need a higher dose of the medication for pain relief. Tolerance is normal and is expected if you take this medicine for a long time. Do not suddenly stop taking your medicine because you may develop a severe reaction. Your body becomes used to the medicine. This does NOT mean you are addicted. Addiction is a behavior related to getting and using a drug for a non-medical reason. If you have pain, you have a medical reason to take pain medicine. Your doctor will tell you how much medicine to take. If your doctor wants you to stop the medicine, the dose will be slowly lowered over time to avoid any side effects. You may get drowsy or dizzy. Do not drive, use machinery, or do anything that needs mental alertness until you know how this medicine affects you. Do not stand or sit up quickly, especially if you are an older patient. This reduces the risk of dizzy or fainting spells. Alcohol may interfere with the effect of this medicine. Avoid alcoholic drinks. There are different types of narcotic medicines (opiates) for pain. If you take more than one type at the same time, you may have more side effects. Give your health care provider a list of all medicines you use. Your doctor will tell you how much medicine to take. Do not take more medicine than directed. Call emergency for help if you have problems breathing. The medicine will cause constipation. Try to have a bowel movement at least every 2 to 3 days. If you do not have a bowel movement for 3 days, call your doctor or health critical care physician assistant. Do not take Tylenol (acetaminophen) or medicines that have acetaminophen with this medicine. Too much acetaminophen can be very dangerous. Many nonprescription medicines contain acetaminophen. Always read the labels carefully to avoid taking more acetaminophen. You have been given the following additional information: Oxycodone Hydrochloride, Acetaminophen Oral tablet Do not allow water in ear. (Electronically signed by Yohannes Townsend MD 12/12/2016 15:58)
--- NOTE | 2016-12-12 15:58 | ED MAR SUMMARY ---
..... Medication Administration Record [facility] [address] [place] [address] Patient: CULLEN ACHARYA Visit ID: [id number] 21y, F Weight: 78.0 kg Height/Length: 63 in BMI: 30.5 ALLERGIES: Latex Given 06:10 12/05/2016 Manuel Liu R.N. Medication Administered: OXYCODONE-APAP [PO] (OXYCODONE-ACETAMINOPHEN), Dose: 2 tab 10/650 mg Tablets PO. Medication Ordered: Oxycodone-APAP PO 10/650 mg (NOW).
--- NOTE | 2016-12-12 15:58 | ED MAR SUMMARY ---
..... Medication Administration Record [facility] [address] [place] [address] Patient: CULLEN ACHARYA Visit ID: [id number] 21y, F Weight: 78.0 kg Height/Length: 63 in BMI: 30.5 ALLERGIES: Latex Given 06:10 12/05/2016 Manuel Liu R.N. Medication Administered: OXYCODONE-APAP [PO] (OXYCODONE-ACETAMINOPHEN), Dose: 2 tab 10/650 mg Tablets PO. Medication Ordered: Oxycodone-APAP PO 10/650 mg (NOW).
--- NOTE | 2016-12-12 15:59 | ED MED RECONCILIATION SUMMARY ---
Patient: CULLEN ACHARYA Medication Reconciliation Report [facility] VisitID: [id number] [place] [address] 21y, F Registration Date/Time: 12/05/2016 Weight: 78.0 kg Height/Length: 63 in. BMI: 30.5 ALLERGIES: Latex The patient's Home Medications are listed below: NONE. The source(s) of the original Home Medication information: patient The following Medications were given to the patient in the Emergency Department: Oxycodone-APAP [PO] PO 2 tab, administered: 12/05/2016 6:10:00 AM The following Medications were prescribed to the patient: Oxycodone/APAP 5 mg/325 mg: take 1-2 tablets orally every 6 hours as needed for pain. Dispense twenty (20). No refill. -- Yohannes Townsend MD
--- NOTE | 2016-12-12 15:59 | ED MED RECONCILIATION SUMMARY ---
Patient: CULLEN ACHARYA Medication Reconciliation Report [facility] VisitID: [id number] [place] [address] 21y, F Registration Date/Time: 12/05/2016 Weight: 78.0 kg Height/Length: 63 in. BMI: 30.5 ALLERGIES: Latex The patient's Home Medications are listed below: NONE. The source(s) of the original Home Medication information: patient The following Medications were given to the patient in the Emergency Department: Oxycodone-APAP [PO] PO 2 tab, administered: 12/05/2016 6:10:00 AM The following Medications were prescribed to the patient: Oxycodone/APAP 5 mg/325 mg: take 1-2 tablets orally every 6 hours as needed for pain. Dispense twenty (20). No refill. -- Yohannes Townsend MD
== END 2016-12-05 06:17 | disposition home or self-care (01) ==
LOC: ED SRH 05:38
DX: S09.22XA Traumatic rupture of left ear drum, initial encounter (principal); S04.62XA Injury of acoustic nerve, left side, initial encounter; W18.09XA Striking against other object with subsequent fall, initial encounter; Y93.9 Activity, unspecified; Y92.9 Unspecified place or not applicable; Y99.9 Unspecified external cause status; Z91.040 Latex allergy status

== ENCOUNTER 2017-01-28 13:47 | Emergency (ER) | payer OTHER ==
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
--- NOTE | 2017-01-28 17:31 | ED MAR SUMMARY ---
..... Medication Administration Record [facility] [address] [place], [place] [id number] Patient: CULLEN ACHARYA Markus Visit ID: [id number] 22y, F Weight: 76.6 kg Height/Length: 64 in BMI: 29 ALLERGIES: Latex
--- NOTE | 2017-01-28 17:31 | ED DISCHARGE INSTRUCTIONS ---
Patient: CULLEN ACHARYA General Instructions [facility] VisitID: [id number] [place] [address] 22y, F Registration Date/Time: 01/28/2017 Muscle strain of the anterior chest wall. INSTRUCTIONS Warnings: GENERAL WARNINGS: Return or contact your physician immediately if your condition worsens or changes unexpectedly, if not improving as expected, or if other problems arise. SPECIFICALLY, return if you develop incontinence of urine (loss of bladder control). worsened pain, trouble breathing. Follow-up: Follow up with your doctor in about three days as needed. Call for an appointment. Summary of care provided to patient and family. Understanding of the discharge instructions verbalized by patient and family. ADDITIONAL INFORMATION Chest Strain A strain of the chest is due to stretching and tearing of the muscle fibers between the ribs. This may occur as a result of severe coughing, strenuous lifting or twisting injuries of the upper back. This usually causes increased pain with movement or deep breathing. This may take a few days to a few weeks to heal. Home Care: Rest. Avoid heavy lifting or strenuous exertion. Avoid any activity that causes pain. If you have a severe cough, use a cough syrup such as Robitussin DM (containing dextromethorphan) unless another cough medicine was prescribed. You may use acetaminophen (Tylenol) or ibuprofen (Motrin, Advil) to control pain, unless another medicine was prescribed. [ NOTE: If you have chronic liver or kidney disease or ever had a stomach ulcer or GI bleeding, talk with your doctor before using these medicines.] Follow Up with your doctor as directed. Get Prompt Medical Attention if any of the following occur: A change in the type of pain: if it feels different, becomes more severe, lasts longer, or begins to spread into your shoulder, arm, neck, jaw or back Shortness of breath or increased pain with breathing Cough with dark colored sputum (phlegm) or blood Weakness, dizziness, or fainting Fever of 100.4F (38C) or higher, or as directed by your healthcare provider You have been given the following additional information: Chest Wall Strain (Electronically signed by Ashley Jack A.R.N.P. 01/28/2017 17:31)
--- NOTE | 2017-01-28 17:31 | ED MED RECONCILIATION SUMMARY ---
Patient: CULLEN ACHARYA Medication Reconciliation Report [facility] VisitID: [id number] [address] [place] [address] 22y, F Registration Date/Time: 01/28/2017 Weight: 76.6 kg Height/Length: 64 in. BMI: 29.0 ALLERGIES: Latex The patient's Home Medications are listed below: THE FOLLOWING MEDICATIONS NEED TO BE RECONCILED: "nausea medication" Aspirin Oral 81 mg Folic Acid Oral The source(s) of the original Home Medication information: Not obtained. The following Medications were given to the patient in the Emergency Department: None. The following Medications were prescribed to the patient: None.
--- NOTE | 2017-01-28 17:31 | ED DISCHARGE INSTRUCTIONS ---
Patient: CULLEN ACHARYA General Instructions [facility] VisitID: [id number] [place] [address] 22y, F Registration Date/Time: 01/28/2017 Muscle strain of the anterior chest wall. INSTRUCTIONS Warnings: GENERAL WARNINGS: Return or contact your physician immediately if your condition worsens or changes unexpectedly, if not improving as expected, or if other problems arise. SPECIFICALLY, return if you develop incontinence of urine (loss of bladder control). worsened pain, trouble breathing. Follow-up: Follow up with your doctor in about three days as needed. Call for an appointment. Summary of care provided to patient and family. Understanding of the discharge instructions verbalized by patient and family. ADDITIONAL INFORMATION Chest Strain A strain of the chest is due to stretching and tearing of the muscle fibers between the ribs. This may occur as a result of severe coughing, strenuous lifting or twisting injuries of the upper back. This usually causes increased pain with movement or deep breathing. This may take a few days to a few weeks to heal. Home Care: Rest. Avoid heavy lifting or strenuous exertion. Avoid any activity that causes pain. If you have a severe cough, use a cough syrup such as Robitussin DM (containing dextromethorphan) unless another cough medicine was prescribed. You may use acetaminophen (Tylenol) or ibuprofen (Motrin, Advil) to control pain, unless another medicine was prescribed. [ NOTE: If you have chronic liver or kidney disease or ever had a stomach ulcer or GI bleeding, talk with your doctor before using these medicines.] Follow Up with your doctor as directed. Get Prompt Medical Attention if any of the following occur: A change in the type of pain: if it feels different, becomes more severe, lasts longer, or begins to spread into your shoulder, arm, neck, jaw or back Shortness of breath or increased pain with breathing Cough with dark colored sputum (phlegm) or blood Weakness, dizziness, or fainting Fever of 100.4F (38C) or higher, or as directed by your healthcare provider You have been given the following additional information: Chest Wall Strain (Electronically signed by Ashley Jack A.R.N.P. 01/28/2017 17:31)
--- NOTE | 2017-01-28 17:31 | ED MED RECONCILIATION SUMMARY ---
Patient: CULLEN ACHARYA Medication Reconciliation Report [facility] VisitID: [id number] [address] [place] [address] 22y, F Registration Date/Time: 01/28/2017 Weight: 76.6 kg Height/Length: 64 in. BMI: 29.0 ALLERGIES: Latex The patient's Home Medications are listed below: THE FOLLOWING MEDICATIONS NEED TO BE RECONCILED: "nausea medication" Aspirin Oral 81 mg Folic Acid Oral The source(s) of the original Home Medication information: Not obtained. The following Medications were given to the patient in the Emergency Department: None. The following Medications were prescribed to the patient: None.
--- NOTE | 2017-01-28 17:31 | ED MAR SUMMARY ---
..... Medication Administration Record [facility] [address] [place], [place] [id number] Patient: CULLEN ACHARYA Markus Visit ID: [id number] 22y, F Weight: 76.6 kg Height/Length: 64 in BMI: 29 ALLERGIES: Latex
== END 2017-01-28 15:40 | disposition home or self-care (01) ==
LOC: ED SRH 13:47
DX: O9A.211 Injury, poisoning and certain other consequences of external causes complicating pregnancy, first trimester (principal); Z3A.12 12 weeks gestation of pregnancy; S29.011A Strain of muscle and tendon of front wall of thorax, initial encounter; W22.8XXA Striking against or struck by other objects, initial encounter; Y99.0 Civilian activity done for income or pay; Z79.82 Long term (current) use of aspirin; Z79.899 Other long term (current) drug therapy; Z91.040 Latex allergy status